=== PATIENT | male | born 1980 | race Caucasian/White ===

== ENCOUNTER 2016-10-15 01:34 | Emergency (ER) | payer MEDICARE, OTHER, MEDICAID ==
[~2016-10-15] VITALS: Ht 167.6 cm; Wt 104.8 kg
[~2016-10-15 01:34] MED LIST: ACET325T9 PO; ALLO300T PO; ARIP20TA8 PO; ASPI-482 PO; BECL8.7A6 IH; BUTA1CAP31 PO; CLON0.1T PO; DICL100G7 TP; DIPH25CA58 PO; DIVA500T17 PO; FLUO10CA7 PO; HYDR25TA PO; LEVO125T5 PO; LIDO30CR TP; LISI10TA2 PO; LISI40TA PO; MAGN400T3 PO; MECL25TA3 PO; MELO-150 PO; METF10002 PO; METO50TA2 PO; MOME17SP NS; NAPR500T3 PO; PHEN100C PO; PRAZ1CAP2 PO; PRAZ2CAP2 PO; PROC10TA PO; QUET50TA5 PO; SERT100T PO; SIMV20TA3 PO; SUMA50TA3 PO; TIOT18CA IH; TIZA4TAB8 PO; TOPI200T25 PO
[2016-10-15 02:19] LABS: BARBITURATES POS (NEG); BENZODIAZEPINES POS (NEG); CANNABINOIDS NEG (NEG); COCAINE NEG (NEG); METHADONE NEG (NEG); OPIATES NEG (NEG); PHENCYCLIDINE NEG (NEG)
[2016-10-15 02:21] LABS: BILIRUBIN,URINE NEG (NEG); CLARITY,URINE CLEAR; COLOR,URINE YELLOW; GLUCOSE,URINE NEG (NEG)
[2016-10-15 02:22] LABS: BACTERIA,URINE FEW /HPF (0-FEW); NITRITE,URINE NEG (NEG); RBC,URINE OCC /HPF (0-2); SQUAMOUS EPITHELIAL CELL,UR OCC /LPF; UROBILINOGEN,URINE 1 mg/dL (0.2 mg/dL); WBC,URINE OCC /HPF (0-4)
[2016-10-15 02:25] LABS: AMPHETAMINE/METHAMPHETAMINE NEG (NEG)
--- NOTE | 2016-10-15 02:43 | PHYS DOC ---
General Chief Complaint: SUICDAL IDEATION Stated Complaint: SI AND DEPRESSION Time Seen by MD: 01:39 Source: patient, EMS Problems: History of Present Illness Initial Comments Patient by EMS for suicidal ideations. Patient says starting today, he is felt suicidal. He has no plan for self-harm. He says he tried to harm himself before and has been in an inpatient psychiatric facilities. He is currently seeing a counselor at the [facility]. He notes no particular trigger for suicidal ideations today. He has no homicidal ideations. Denies any visual or artery hallucinations. He has no acute medical issues today. There is no fever chills URI symptoms or cough. There's no chest pain or shortness of breath. No nausea vomiting or abdominal pain. There is no change in bowel or bladder habits and denies any focal extremity or neurologic complaints . Patient is noted to be generally tremulous, but he says he has been this way ever since he started having seizures in 1999 this is not acutely changed or different for him in any way. Other than presenting for care tonight by EMS to be nothing done for this prior to arrival in the ER no factors that increase or decrease his symptoms. Patient's past medical history according him is remarkable for seizure disorder since about 1999. The cause of this is unknown. He also has TBI in 2008. He says he has hypertension and diabetes as well. Checked her sugar earlier today and it was right around 100. He claims compliance with the seizure medicine which includes valproic acid. He is a nonsmoker and nonuser of ethanol. Nurse indicates the patient told her he was just discharged from [facility] recently. Allergies: Coded Allergies: Penicillins (Verified Allergy, Intermediate, 10/02/16) hydrocodone (Verified Allergy, Unknown, 10/02/16) oxycodone (Verified Allergy, Unknown, 10/02/16) Uncoded Allergies: bee venom (Allergy, Unknown, 10/02/16) Past Medical History Medical History: diabetes, seizure, other Surgical History: noncontributory Psychosocial History: post traumatic stress Family History Significant Family History: no pertinent family hx Social History Smoker: non-smoker Alcohol: none Drugs: none Review of Systems All Other Systems: Reviewed and Negative Physical Exam General Appearance: WD/WN, no apparent distress Eyes: bilateral eye EOMI, bilateral eye PERRL, bilateral eye normal inspection Ear, Nose, Throat: normal ENT inspection, normal pharynx Neck: full range of motion, supple, normal inspection Respiratory: lungs clear, normal breath sounds, no respiratory distress Cardiovascular: regular rate, rhythm, no edema Gastrointestinal: non tender, soft, no organomegaly Back: no CVA tenderness, no vertebral tenderness Extremities: non-tender, normal inspection Neurologic/Psychiatric: warp knitter II-XII nml as tested, no motor/sensory deficits, alert, normal mood/affect, oriented x 3 Skin: normal color Lymphatic: no adenopathy Comments Generally this is a well-developed well-nourished white male in no acute distress. Vitals are as noted. Pertinent findings on physical exam shows ears and throat clear. Pupils are equal and reactive to light and accommodation. Intraocular movements are intact. Neck is supple without adenopathy or JVD. No meningeal signs. Chest is clear and cardiovascular exams unremarkable. The abdomen is soft and nontender without masses or organomegaly or perineal findings. Back shows no CVA tenderness. Extremity show no rash, cyanosis, or edema. Neurologic exam finds patient awake alert oriented 4. Cranial nerves II through XII grossly intact. Strength 5 over 5 equal sinus tested. There are no gross sensory deficits. He says he has self-harm thoughts but is not actively homicidal. He is not actively hallucinating. Remainder of physical exam is clinically unremarkable. Orders, Labs, Meds Old charts note multiple recent visits to the ER as well as hospital admissions. He was seen on the of this month for seizures. There was noted the patient was not incontinent at that time and apparently witnesses said his eyes were twitching but is not unconscious. His noted has a history of pseudoseizure and had a video EEG which revealed no seizure activity in the past 3 also complaining of nonspecific chest pain. He was admitted and seen by neurology, who recommended prolonged video monitoring EEG like was already done in [place]. He was discharged back to his [facility] with diagnosis of pseudoseizure , chronic headache, hypertension, diabetes, hypothyroidism, gout, PTSD, atraumatic brain injury. The patient was sent then seen in the ER on the of the month for breakthrough seizure, and then readmitted to the hospital on the again stating that he had seizures and one was unable to fill his Depakote. He had chronic headache as well. He apparently lives in the [facility] assisted living residence and has all his medications available to him. He was subsequently discharged to follow-up. 0240 Patient resting comfortably in the ED. We have taken advantage of the TelePsych service and the patient has been reviewed by Dr. Guardado. He feels the patient has some poor insight and poor judgment, and possibly some cognitive defects which prevent him from being medically compliant as well as properly aron for safety. He feels the patient would probably be best served by inpatient psychiatric hospitalization. Labs are still pending, but assuming these are unremarkable as is suspect they will be, we will pursue make appropriate calls to find him placement. ORALIA MORROW MD Oct 15, 2016 02:00
[2016-10-15 02:44] LABS: ALBUMIN 3.7 g/dL (3.4-5.0); ALBUMIN/GLOBULIN RATIO 1.3 (1.0-1.7); ALK PHOS 73 U/L (46-116); ALT (SGPT) 66 U/L (16-63); ANION GAP 10 (6-14); AST (SGOT) 26 U/L (15-37); BLOOD UREA NITROGEN 18 mg/dL (8-26); BUN/CREATININE RATIO 18 (6-20); CALCIUM 8.5 mg/dL (8.5-10.1); CARBON DIOXIDE 24 mmol/L (21-32); CHLORIDE 104 mmol/L (98-107); GFR 85.5; GLUCOSE 99 mg/dL (70-99); POTASSIUM 3.5 mmol/L (3.5-5.1); SODIUM 138 mmol/L (136-145); TOTAL BILIRUBIN 0.3 mg/dL (0.2-1.0); TOTAL PROTEIN 6.5 g/dL (6.4-8.2)
[2016-10-15 02:45] LABS: VAL ACID 71 mcg/mL (50-100)
[2016-10-15 02:46] LABS: ACETAMIN < 2.0 mcg/mL (10-30); ETHANOL < 10 mg/dL (0-10)
[2016-10-15 03:04] LABS: BASO % 0 % (0-3); EOS % 1 % (0-3); HEMATOCRIT 44.2 % (39.0-53.0); HEMOGLOBIN 14.3 g/dL (13.0-17.5); LYMPH % 44 % (24-48); MEAN CORPUSCULAR HEMOGLOBIN 29 pg (25-35); MEAN CORPUSCULAR HGB CONC 32 g/dL (31-37); MEAN CORPUSCULAR VOLUME 91 fL (79-100); MONO % 6 % (0-9); NEUT % 49 % (31-73); PLATELET COUNT 187 x10^3/uL (140-400); RED BLOOD COUNT 4.88 x10^6/uL (4.30-5.70); RED CELL DISTRIBUTION WIDTH 14.1 % (11.5-14.5)
[2016-10-15 03:05] LABS: MONO # 0.4 x10^3/uL (0.0-1.1); NEUT # 3.4 x10^3uL (1.8-7.7)
--- NOTE | 2016-10-15 05:20 | ACF ---
Admit Criteria Forms Admit Criteria Forms Admit Criteria Forms PSYCHIATRIC DISORDERS Clinical Indications for Inpatient Care (Place 'X' for any and all applicable criteria): Ongoing inpatient care may be needed for ANY ONE of the following(1)(2)(3)(4)(6) (7)(8): [X]I. Danger to self or others not manageable at lower level of care. [ ]II. Grave disability (eg, inability to perform self care necessary at lower level of care) [ ]III. Agitation or inappropriate behavior interfering with care for primary condition (eg, attempting to discontinue lines or drains prematurely, unable to cooperate with respiratory care) [ ]IV. Severe disability or disorder indicated by ALL of the following: [ ]a) Severe behavioral health disorder-related symptoms or condition indicated by ANY ONE of the following: [ ]i) Severe problem with cognition, memory, judgment, or impulse control [ ]ii) Severe clinical manifestations (eg, hallucinations, delusions, other acute psychotic symptoms, jodi, extreme agitation or anxiety) [ ]b) Patient management at lower level of care is not feasible until acute intervention or modification is initiated. Extended stay beyond goal length of stay for the primary condition may be indicated when ANY ONE of the following is present: (1)(2)(3)(4): [ ]a) Patient is a danger to self or others and not manageable at lower level of care. [ ]b) Behavior crisis management, including physical or chemical restraints, is required and is not available at a lower level of care. [ ]c) Behavioral symptoms (e.g., agitation, somnolence, inappropriate behavior) are present, and are not manageable at a lower level of care. [ ]d) Patient cannot understand follow-up treatment and crisis plan. [ ]e) Provider and supports are not sufficiently available at lower level of care. [ ]f) Patient cannot participate (e.g., verify absence of plan for harm) and is in needed of monitoring. The original [facility] content created by [facility] has been revised. The portions of the content which have been revised are identified through the use of italic text or in bold, and [facility] has neither reviewed nor approved the modified material. All other unmodified content is copyright [facility]. Please see references footnoted in the original [facility] edition 2016 NEDA HELMS Oct 15, 2016 05:20
[2016-10-15 07:05] VITALS: BP 134/75
== END 2016-10-15 08:11 ==
LOC: ER 01:34
DX: R45.851 Suicidal ideations (principal); G40.909 Epilepsy, unspecified, not intractable, without status epilepticus; E11.9 Type 2 diabetes mellitus without complications; I10 Essential (primary) hypertension; Z88.0 Allergy status to penicillin; Z88.6 Allergy status to analgesic agent
CPT/HCPCS: 36415; 80053; 80164; 81001; 82010; 82140; 84443; 85027; 99285; G0480; G0481; G6038; 80196

== ENCOUNTER 2016-11-03 20:17 | Emergency (ER) | payer MEDICARE, OTHER, MEDICAID ==
[~2016-11-03] VITALS: Ht 167.6 cm; Wt 104.8 kg
--- NOTE | 2016-11-03 20:33 | ED.ADGEN ---
Past History Past Medical History: Anxiety, Arthritis, Bronchitis, Depression, DVT, Migraines, Seizure, Other Past Surgical History: Knee Replacement, Tonsillectomy, Other Alcohol Use: None Drug Use: None Adult General Chief Complaint Chief Complaint " .. I got really short of breath walking up to [employer]... and I ve had this head ache since my Traumatic Brain Injury 9 yrs ago.. I usually go to the [facility].. and live [facility].. but I did not want to go there today..." HPI HPI Patient is a 36 year old male who presents with above hx and complaints of dyspnea, chest discomfort and headache. Patient has history of traumatic brain injury 9 years ago. Gives a history of constant headache for the past 9 years. Patient normally follows at the [facility]. [facility] Pt. Has hx of pseudo seizures. Pt. describes chest pains is central and nonradiating. Nothing make the pain better. Pt. states he had it constant the past two days. 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 Not currently on anticoagulant Review of Systems Review of Systems Constitutional: Denies fever or chills [] Eyes: Denies change in visual acuity, redness, or eye pain [] HENT: Denies nasal congestion or sore throat [] Respiratory complaints of shortness of breath [] Cardiovascular: No additional information not addressed in HPI [] GI: Denies abdominal pain, nausea, vomiting, bloody stools or diarrhea [] : Denies dysuria or hematuria []Give history of chronic intermittent urinary retention. Musculoskeletal: Denies back pain or joint pain [] Integument: Denies rash or skin lesions [] Neurologic: Complaints of chronic headache for past 9 years. Denies Focal weakness or sensory changes [] Endocrine: Denies polyuria or polydipsia [] Family History Family History Noncontributory Current Medications Current Medications Current Medications Medications (Trade) Dose Ordered Sig/Chana Start Time Stop Time Status Last Admin Dose Admin Aspirin 325 mg 325 mg 1X ONCE 11/03/16 21:00 11/03/16 21:01 DC 11/03/16 21:25 325 MG Lactated Ringer's (Iv Lactated Ringers) 1,000 ml @ 1,000 mls/hr Q1H 11/03/16 20:45 11/04/16 03:41 DC Tramadol HCl (Ultram) 100 mg 1X ONCE 11/04/16 00:30 11/04/16 01:10 DC 11/04/16 00:41 100 MG Allergies Allergies Allergies Coded Allergies Type Severity Reaction Last Updated Verified Penicillins Allergy Intermediate 10/02/16 Yes hydrocodone Allergy Unknown 10/02/16 Yes oxycodone Allergy Unknown 10/02/16 Yes Uncoded Allergies Type Severity Reaction Last Updated Verified bee venom Allergy Unknown 10/02/16 Physical Exam Physical Exam Constitutional: no acute distress, non-toxic appearance. [] HENT: Normocephalic, atraumatic, bilateral external ears normal, oropharynx moist, no oral exudates, nose normal. Old scars Eyes: PERRLA, EOMI, conjunctiva normal, no discharge. [] Neck: Normal range of motion, no tenderness, supple, no stridor. [] Cardiovascular:Heart rate regular rhythm, no murmur [] Lungs & Thorax: Bilateral breath sounds clear to auscultation [] Abdomen: Bowel sounds normal, soft, no tenderness, no masses, no pulsatile masses. [] Skin: Warm, dry, no erythema, no rash. [] Back: No tenderness, no CVA tenderness. [] Extremities: No tenderness, no cyanosis, no clubbing, ROM intact, no edema. [] Scar knees Neurologic: Alert and oriented X 3, normal motor function, normal sensory function, no focal deficits noted. DTRs +2 patella and brachial. No drift. Xdryxs-pk-kcxf good. Screen Vent Binder equal. Psychologic: Affect normal, judgement and determine at this time., mood normal. [] Current Patient Data Vital Signs Vital Signs Date Time Temp Pulse Resp B/P Pulse Ox O2 Delivery O2 Flow Rate FiO2 11/03/16 20:17 97.8 103 18 97 Room Air Lab Results Laboratory Tests Test 11/03/16 21:26 11/03/16 23:35 Urine Collection Type Unknown Urine Color Straw Urine Clarity Clear Urine pH 6.0 Urine Specific [place] 1.015 Urine Protein Neg (NEG-TRACE) Urine Glucose (UA) Negmg/dL (NEG) Urine Ketones (Stick) Negmg/dL (NEG) Urine Blood Trace (NEG) Urine Nitrite Neg (NEG) Urine Bilirubin Neg (NEG) Urine Urobilinogen Dipstick 0.2mg/dL (0.2 mg/dL) Urine Leukocyte Esterase Neg (NEG) Urine RBC 0/HPF (0-2) Urine WBC Occ/HPF (0-4) Urine Squamous Epithelial Cells Occ/LPF Urine Bacteria 0/HPF (0-FEW) White Blood Count 9.5x10^3/uL (4.0-11.0) Red Blood Count 5.12x10^6/uL (4.30-5.70) Hemoglobin 14.9g/dL (13.0-17.5) Hematocrit 44.9% (39.0-53.0) Mean Corpuscular Volume 88fL (79-100) Mean Corpuscular Hemoglobin 29pg (25-35) Mean Corpuscular Hemoglobin Concent 33g/dL (31-37) Red Cell Distribution Width 13.8% (11.5-14.5) Platelet Count 233x10^3/uL (140-400) Neutrophils (%) (Auto) 62% (31-73) Lymphocytes (%) (Auto) 32% (24-48) Monocytes (%) (Auto) 5% (0-9) Eosinophils (%) (Auto) 1% (0-3) Basophils (%) (Auto) 1% (0-3) Neutrophils # (Auto) 5.9x10^3uL (1.8-7.7) Lymphocytes # (Auto) 3.1x10^3/uL (1.0-4.8) Monocytes # (Auto) 0.5x10^3/uL (0.0-1.1) Eosinophils # (Auto) 0.1x10^3/uL (0.0-0.7) Basophils # (Auto) 0.0x10^3/uL (0.0-0.2) Erythrocyte Sedimentation Rate 4 (0-15) Prothrombin Time 11.0SEC (9.4-11.4) Prothrombin Time INR 1.1 (0.9-1.1) PTT 27SEC (23-33) D-Dimer (Mary) < 0.19mg/L (0.00-0.50) Sodium Level 142mmol/L (136-145) Potassium Level 3.9mmol/L (3.5-5.1) Chloride Level 107mmol/L (98-107) Carbon Dioxide Level 24mmol/L (21-32) Anion Gap 11 (6-14) Blood Urea Nitrogen 19mg/dL (8-26) Creatinine 1.0mg/dL (0.7-1.3) Estimated GFR (Cockcroft-Gault) 85.5 Glucose Level 111mg/dL (70-99) H Calcium Level 8.9mg/dL (8.5-10.1) Magnesium Level 1.9mg/dL (1.8-2.4) Total Bilirubin 0.3mg/dL (0.2-1.0) Direct Bilirubin 0.1mg/dL (0.0-0.2) Aspartate Amino Transferase (AST) 30U/L (15-37) Alanine Aminotransferase (ALT) 102U/L (16-63) H Alkaline Phosphatase 89U/L (46-116) Creatine Kinase 75U/L (39-308) Creatine Kinase MB (Mass) 1.1ng/mL (0.0-3.6) Creatine Kinase MB Relative Index 1.5% (0-4) Troponin I Quantitative < 0.017ng/mL (0-0.055) C-Reactive Protein 5.3mg/L (0-3.3) H LK-Fmd-W-Type Natriuretic Peptide 17pg/mL (0-124) Total Protein 7.2g/dL (6.4-8.2) Albumin 4.0g/dL (3.4-5.0) Lipase 203U/L (73-393) EKG EKG My interpretation EKG shows a sinus tachycardia at 106. Some bimodal P-wave's on the left. Nonspecific anterior septal changes. No findings acute STEMI with contralateral changes Radiology/Procedures Radiology/Procedures My interpretation of chest x-ray shows no acute cardiopulmonary findings. My interpretation of CT of head shows no shift, mass, edema, bleed, or fracture. [] Course & Med Decision Making Course & Med Decision Making Pertinent Labs and Imaging studies reviewed. (See chart for details). Patient to follow-up primary care. Patient return if any concerns. Patient take a daily aspirin. Recent take Tylenol and ibuprofen as needed for discomfort. Patient request cath. by nurse because of urinary retention. Pt. however demanded the cath. be removed at time of discharge. [] Final Impression Final Impression 1. Dyspnea[] 2. History of chronic migraine 3. History of traumatic brain injury 4. History of intermediate chronic urinary retention 5. Possible Drug seeking Behavior. 6. Hx. Behavioral Disorder 7. Hx. Depression 8. Hx. of Pseudoseizures Problems: Dragon Disclaimer Zachary Disclaimer This electronic medical record was generated, in whole or in part, using a voice recognition dictation system. STORM DELUNA MD Nov 03, 2016 20:33
[2016-11-03] MEDS ORDERED: IV RINGERS SOLUTION,LACTATED 1,000 ML IV SCH (20:45)
[2016-11-03] MEDS ORDERED: ASPIRIN 325 MG TABLET PO ONE (21:00)
--- NOTE | 2016-11-03 21:14 | RAD ---
PROCEDURE CT head without intravenous contrast. HISTORY Headache. TECHNIQUE Axial images are obtained of the head from the skull base through the vertex without IV contrast Exposure: One or more of the following individualized dose reduction techniques were utilized for this examination: 1. Automated exposure control. 2. Adjustment of the mA and/or kV according to patient size. 3. Use of iterative reconstruction technique. COMPARISON CT head October 02, 2016. FINDINGS The ventricles are appropriate in size, shape, and location for the patient's age.No obvious intracranial mass, mass-effect, midline shift, hemorrhage or obvious acute infarction is identified.Basilar cisterns are patent. Bone windows demonstrate no acute calvarial abnormality.The visualized paranasal sinuses appear clear. IMPRESSION No acute intracranial process. Electronically signed by: Karthik Howard MD (Nov 03, 2016 21:12:43)
[2016-11-03 22:07] LABS: BACTERIA,URINE 0 /HPF (0-FEW); BILIRUBIN,URINE NEG (NEG); CLARITY,URINE CLEAR; COLOR,URINE STRAW; GLUCOSE,URINE NEG (NEG); NITRITE,URINE NEG (NEG); RBC,URINE 0 /HPF (0-2); SQUAMOUS EPITHELIAL CELL,UR OCC /LPF; UROBILINOGEN,URINE 0.2 mg/dL (0.2 mg/dL); WBC,URINE OCC /HPF (0-4)
--- NOTE | 2016-11-03 23:19 | EKG ---
[address] [address] Test Date: 2016-11-03 Test Time: 20:35:14 Pat Name: AGNELA JOHANSEN Department: Room: Gender: M Fly Winder: ALEX : 1980 Requested By: STORM DELUNA Order Number: [id number] Reading MD: Measurements Intervals [place] Rate: 106 P: -133 MI: 134 QRS: 13 QRSD: 94 T: 11 QT: 324 QTc: 432 Interpretive Statements SINUS TACHYCARDIA LEFT ATRIAL ABNORMALITY QRS(T) CONTOUR ABNORMALITY CONSIDER ANTEROSEPTAL MYOCARDIAL DAMAGE ABNORMAL ECG RI6.01 Unconfirmed report No previous ECG available for comparison
[2016-11-03 23:52] LABS: BASO % 1 % (0-3); EOS # 0.1 x10^3/uL (0.0-0.7); EOS % 1 % (0-3); HEMATOCRIT 44.9 % (39.0-53.0); HEMOGLOBIN 14.9 g/dL (13.0-17.5); LYMPH # 3.1 x10^3/uL (1.0-4.8); LYMPH % 32 % (24-48); MEAN CORPUSCULAR HEMOGLOBIN 29 pg (25-35); MEAN CORPUSCULAR HGB CONC 33 g/dL (31-37); MEAN CORPUSCULAR VOLUME 88 fL (79-100); MONO # 0.5 x10^3/uL (0.0-1.1); MONO % 5 % (0-9); NEUT # 5.9 x10^3uL (1.8-7.7); NEUT % 62 % (31-73); PLATELET COUNT 233 x10^3/uL (140-400); RED BLOOD COUNT 5.12 x10^6/uL (4.30-5.70); RED CELL DISTRIBUTION WIDTH 13.8 % (11.5-14.5); WHITE BLOOD COUNT 9.5 x10^3/uL (4.0-11.0)
[2016-11-04 00:14] LABS: C REACTIVE PROTEIN 5.3 mg/L (0-3.3); CALCIUM 8.9 mg/dL (8.5-10.1); DIRECT BILIRUBIN 0.1 mg/dL (0.0-0.2); GFR 85.5; MAGNESIUM 1.9 mg/dL (1.8-2.4); POTASSIUM 3.9 mmol/L (3.5-5.1); TOTAL BILIRUBIN 0.3 mg/dL (0.2-1.0); TOTAL PROTEIN 7.2 g/dL (6.4-8.2)
[2016-11-04 00:30] VITALS: BP 141/82
[2016-11-04] MEDS ORDERED: TRAMADOL 50 MG TABLET. PO ONE (00:30)
[2016-11-04 01:08] LABS: SEDIMENTATION RATE 4 (0-15)
--- NOTE | 2016-11-04 08:18 | RAD ---
Indication: Chest pain and short of breath. Technique: Two-view chest radiograph was obtained and compared to a study from October 02, 2016. Findings: There is improved aeration of the left lung base. Calcified granuloma is noted on the left. Right costophrenic sulcus is clipped on the frontal projection. No new airspace disease is apparent. The heart is not enlarged and there is no heart failure. There is no pleural effusion. Bony structures are intact. Leads overlie the patient. Impression: No acute thoracic findings.
== END 2016-11-04 00:46 | disposition home or self-care (01) ==
LOC: ER 20:17
DX: R06.00 Dyspnea, unspecified (principal); G43.909 Migraine, unspecified, not intractable, without status migrainosus; M19.90 Unspecified osteoarthritis, unspecified site; F91.9 Conduct disorder, unspecified; Z86.718 Personal history of other venous thrombosis and embolism; Z86.711 Personal history of pulmonary embolism; Z87.820 Personal history of traumatic brain injury; Z88.0 Allergy status to penicillin; Z88.6 Allergy status to analgesic agent; Z91.030 Bee allergy status
CPT/HCPCS: 36415; 51702; 70450; 71020; 80048; 80076; 81001; 82553; 83690; 83735; 83880; 84443; 84484; 85027; 85379; 85610; 85651; 85730; 86140; 93005; 99285-25

== ENCOUNTER 2016-11-14 04:17 | Emergency (ER) | payer MEDICARE, OTHER, MEDICAID ==
[~2016-11-14] VITALS: Ht 167.6 cm; Wt 98.0 kg
--- NOTE | 2016-11-14 04:29 | PHYS DOC ---
General Chief Complaint: cp Stated Complaint: CHEST PAIN Time Seen by MD: 04:22 Source: patient Exam Limitations: clinical condition Problems: History of Present Illness Initial Comments Pt is 36/M to [facility] with complaint of MINOR, chest pain. Pt states immediately prior to ED arrival he "awoke" on the floor in the bathroom. Pt feels he must have had a seizure, states he awoke with global moderate MINOR and chest pain. No focal neurodefs, MINOR is consistent with chronic symptoms. Chest pain described as pressure behind sternum moderate, worse with deep breaths relieved by nothing. No arm/neck sx, no n/v, no diaphoresis, + feeling cannot get a deep breath. EMS gave ASA 324, pt reports he had a negative chemical stress test about a year ago. Pt recently relocated to this area. No pain complaints other than MINOR/CP, pt denies injury from presumed fall. Timing/Duration: 1 hour Severity: moderate Associated Symptoms: chest pain, headaches, malaise, seizure, syncope, weakness Allergies: Coded Allergies: Penicillins (Verified Allergy, Intermediate, 11/14/16) hydrocodone (Verified Allergy, Unknown, 11/14/16) oxycodone (Verified Allergy, Unknown, 11/14/16) Uncoded Allergies: bee venom (Allergy, Unknown, 10/02/16) Past Medical History Medical History: diabetes, seizure, other (Pulmonary Embolism, OA, bronchitis, TBI, PTSD, anxiety, bipolar, drug seeking behavior, seizure/pseudoseizure, chronic headaches, HTN, DM2, hypothyroid, gout) Surgical History: noncontributory (TKR), tonsillectomy Family History Significant Family History: no pertinent family hx Social History Smoker: non-smoker Alcohol: none Drugs: none Review of Systems Constitutional: denies chills, denies diaphoresis, denies fever, malaise Respiratory: cough shortness of breath wheezing Cardiovascular: chest paindenies edema, denies palpitations, syncope Gastrointestinal: denies abdominal pain, denies diarrhea, denies nausea, denies vomiting Genitourinary: denies dysuria, denies frequency, denies hematuria Musculoskeletal: denies back pain, denies joint swelling, denies neck pain Psychiatric/Neurological: headachedenies numbness, denies paresthesia, seizuredenies weakness Hematologic/Lymphatic: denies blood clots, denies easy bleeding, denies easy bruising Physical Exam General Appearance: WD/WN, no apparent distress Eyes: bilateral eye EOMI, bilateral eye PERRL, bilateral eye normal inspection Ear, Nose, Throat: hearing grossly normal, normal ENT inspection, normal pharynx Neck: non-tender, supple Respiratory: chest non-tender, no respiratory distress, decreased breath sounds , wheezing Cardiovascular: normal peripheral pulses, regular rate, rhythm Gastrointestinal: non tender, soft Back: no CVA tenderness, no vertebral tenderness Extremities: non-tender, normal inspection Neurologic/Psychiatric: commercial sales director II-XII nml as tested, no motor/sensory deficits, alert, oriented x 3, other (flat affect) Skin: normal color, warm/dry Orders, Labs, Meds EKG: NSR 83 bpm, no acute ischemic changes no STEMI Chest AP: no acute cardiopulmonary process Pt signed out to Dr Christian at 0600 shift change. See his note for results/ disposition. CRISTIAN AGARWAL DO Nov 14, 2016 04:28
[2016-11-14] MEDS ORDERED: IPRATRPIUM/ALBUTEROL 0.5/2.5MG 3 ML NEBU. NEB ONE (04:45)
[2016-11-14 05:24] LABS: BASO % 0 % (0-3); EOS # 0.1 x10^3/uL (0.0-0.7); EOS % 1 % (0-3); HEMATOCRIT 44.9 % (39.0-53.0); HEMOGLOBIN 14.8 g/dL (13.0-17.5); LYMPH # 3.4 x10^3/uL (1.0-4.8); LYMPH % 42 % (24-48); MEAN CORPUSCULAR HEMOGLOBIN 29 pg (25-35); MEAN CORPUSCULAR HGB CONC 33 g/dL (31-37); MEAN CORPUSCULAR VOLUME 88 fL (79-100); MONO # 0.5 x10^3/uL (0.0-1.1); MONO % 7 % (0-9); NEUT # 4.2 x10^3uL (1.8-7.7); NEUT % 51 % (31-73); PLATELET COUNT 253 x10^3/uL (140-400); RED BLOOD COUNT 5.11 x10^6/uL (4.30-5.70); RED CELL DISTRIBUTION WIDTH 14.5 % (11.5-14.5); WHITE BLOOD COUNT 8.1 x10^3/uL (4.0-11.0)
[2016-11-14 05:31] LABS: BARBITURATES NEG (NEG); BENZODIAZEPINES NEG (NEG); CANNABINOIDS NEG (NEG); COCAINE NEG (NEG); METHADONE NEG (NEG); OPIATES NEG (NEG); PHENCYCLIDINE NEG (NEG)
[2016-11-14 05:33] LABS: BACTERIA,URINE FEW /HPF (0-FEW); BILIRUBIN,URINE NEG (NEG); CLARITY,URINE CLEAR; COLOR,URINE STRAW; GLUCOSE,URINE NEG (NEG); NITRITE,URINE NEG (NEG); RBC,URINE 0 /HPF (0-2); SQUAMOUS EPITHELIAL CELL,UR OCC /LPF; UROBILINOGEN,URINE 0.2 mg/dL (0.2 mg/dL); WBC,URINE 0 /HPF (0-4)
[2016-11-14 05:38] LABS: AMPHETAMINE/METHAMPHETAMINE NEG (NEG); VAL ACID < 3 mcg/mL (50-100)
[2016-11-14 05:45] LABS: ALBUMIN 4.1 g/dL (3.4-5.0); ALBUMIN/GLOBULIN RATIO 1.3 (1.0-1.7); CALCIUM 8.8 mg/dL (8.5-10.1); GFR 85.5; MAGNESIUM 1.9 mg/dL (1.8-2.4); POTASSIUM 3.7 mmol/L (3.5-5.1); TOTAL BILIRUBIN 0.3 mg/dL (0.2-1.0); TOTAL PROTEIN 7.2 g/dL (6.4-8.2)
[2016-11-14] MEDS ORDERED: KETOROLAC 15 MG/ML VIAL. IV ONE (06:30)
[2016-11-14] MEDS ORDERED: DIPHENHYDRAMINE 50 MG/ML VIAL IVP ONE (06:30)
[2016-11-14] MEDS ORDERED: DIPHENHYDRAMINE 50 MG/ML VIAL ONE (06:36)
[2016-11-14] MEDS ORDERED: KETOROLAC 15 MG/ML VIAL. ONE (06:36)
[2016-11-14 06:50] VITALS: BP 109/68
--- NOTE | 2016-11-14 07:58 | RAD ---
Indication chest pain. A single view of the chest was obtained. Comparison is made to an examination 11 days earlier. The heart and pulmonary vessels appear normal. The lungs are clear. There is no pleural fluid or pneumothorax. Bony structures appear grossly intact. A significant change when compared to the previous exam is not seen. IMPRESSION: No acute or focal process. No significant change
--- NOTE | 2016-11-14 10:28 | EKG ---
[address] [address] Test Date: 2016-11-14 Test Time: 04:20:52 Pat Name: ANGELA JOHANSEN Department: Room: Gender: M Staff Respiratory Therapist: JULIETTE : 1980 Requested By: CRISTIAN AGARWAL Order Number: [id number] Reading MD: Measurements Intervals [place] Rate: 83 P: 15 NE: 158 QRS: 2 QRSD: 106 T: 18 QT: 354 QTc: 416 Interpretive Statements SINUS RHYTHM R-S TRANSITION ZONE IN V LEADS DISPLACED TO THE LEFT OTHERWISE NORMAL ECG RI6.01 Unconfirmed report No previous ECG available for comparison
== END 2016-11-14 06:54 | disposition home or self-care (01) ==
LOC: ER 04:17
DX: R51 Headache (principal); G89.29 Other chronic pain; R07.89 Other chest pain; R05 Cough; R06.02 Shortness of breath; F41.9 Anxiety disorder, unspecified; E11.9 Type 2 diabetes mellitus without complications; E03.9 Hypothyroidism, unspecified; F43.10 Post-traumatic stress disorder, unspecified; M10.9 Gout, unspecified; I10 Essential (primary) hypertension; M19.90 Unspecified osteoarthritis, unspecified site; Z87.820 Personal history of traumatic brain injury; Z86.711 Personal history of pulmonary embolism; Z88.0 Allergy status to penicillin; Z88.6 Allergy status to analgesic agent; Z91.030 Bee allergy status
CPT/HCPCS: 36415; 71010; 80053; 80164; 80305; 81001; 82550; 83605; 83690; 83735; 83880; 84484; 85027; 85379; 85610; 85730; 93005; 94640; 96374; 96375; 99285; J1200; J1885; J7620; G0481

== ENCOUNTER 2016-11-16 22:56 | Emergency (ER) | payer MEDICARE, OTHER, MEDICAID ==
[2016-11-16 22:56] VITALS: BP 145/79
--- NOTE | 2016-11-16 23:14 | PHYS DOC ---
General Chief Complaint: MECHANICAL FALL Time Seen by MD: 23:01 Source: patient, EMS Problems: History of Present Illness Initial Comments Patient here after fall. Patient says he doesn't know what happened. He thinks he may been trying to do some close, but he remembers being the back of the ambulance with paramedics around. He says he doesn't know how he fell or when he fell. He doesn't know if he has had. He doesn't know if he had a seizure doesn't think he was incontinent. According to EMS, the patient. Has a history of seizures and fell down some steps. It is unknown if he actually had a seizure today or if he did hit his head. EMS notes that he was not incontinent. He was able to get up and walk towards her stretcher on their arrival. At this time, the patient complains of pain over the posterior midline scalp as well as the neck. He has headache. He has no vision or speech changes. There's been no blood or fluid coming from the ears or nose. He's had no fever chills URI symptoms or cough today. There is no chest pain or shortness of breath. No nausea vomiting or abdominal pain. There's been no incontinence and no change amount of bladder habits today. He denies any acute focal extremity or neurologic complaints. Patient states he otherwise is felt well today and does recall anything specific about tonight's incident or fall. Patient's and nothing done for this prior to arrival other than transfer by EMS and no fractures noted increase or decrease in symptoms she might have. Patient's past medical history is remarkable for pseudoseizures, traumatic brain injury, PTSD, diabetes by his report. He says he does not check his sugar regularly at home and is not supposed to. He is a nonsmoker and nonuser of ethanol. He lives at [facility]. Allergies: Coded Allergies: Penicillins (Verified Allergy, Intermediate, 11/14/16) hydrocodone (Verified Allergy, Unknown, 11/14/16) oxycodone (Verified Allergy, Unknown, 11/14/16) Uncoded Allergies: bee venom (Allergy, Unknown, 10/02/16) Past Medical History Medical History: diabetes, seizure, other Surgical History: noncontributory, tonsillectomy Family History Significant Family History: no pertinent family hx Social History Smoker: non-smoker Alcohol: none Review of Systems All Other Systems: Reviewed and Negative Physical Exam General Appearance: WD/WN, no apparent distress Eyes: bilateral eye EOMI, bilateral eye PERRL, bilateral eye normal inspection Ear, Nose, Throat: normal ENT inspection, normal pharynx, other Neck: supple, normal inspection, tender midline Respiratory: lungs clear, normal breath sounds, no respiratory distress Cardiovascular: regular rate, rhythm, no edema Gastrointestinal: non tender, soft, no organomegaly Back: no CVA tenderness, no vertebral tenderness Extremities: non-tender, normal inspection, no pedal edema Neurologic/Psychiatric: 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 Vitals are as noted. Pertinent signs on physical exam shows ears and throat to be grossly clear. The head is atraumatic and normocephalic. He is mildly tender over the posterior midline parietal scalp. There is no signs of trauma. Pupils are equal reactive light and accommodation. Extra ocular movements are intact. Neck is examined and cervical collar. He has diffuse midline tenderness. There is no signs of trauma and no step-offs. Collar is maintained. Chest is clear and cardiovascular exam shows him to be mildly tachycardic with a 3/6 midsystolic murmur heard best at the upper left sternal border. He states he has no history of murmur. The abdomen is soft and nontender. Back shows no CVA tenderness. There is no bony thoracic or lumbar tenderness. Externally show no rashes, cyanosis or edema. Neurologic exam shows an awake alert oriented 4. Cranial nerves II through XII grossly intact. Strength 5 over 5 = system. There are no gross sensory deficits. He is initially not ambulated in the ER. Remainder of physical exam is clinically unremarkable. Orders, Labs, Meds Old charts note multiple recent ER visits. This is fifth visit this year alone. He's been seen for breakthrough seizure, chronic chest pain, chronic headache, and suicidal ideations. He was admitted the hospital the of last month for breakthrough seizure. In looking at the discharge summary, as noted the patient has had video EEG which does confirm the diagnosis of pseudoseizure. He also has hypertension, diabetes, thyroidism, gout, PTSD, atretic brain injury. He was not taking his Depakote at that time. He was discharged back to the assisted living with social service consult. He has a similar condition earlier in September of this year as well. EKG shows sinus 130. Normal axis. No acute ST or T-wave changes. Labs today are clinically unremarkable. Tox screen is negative. Chest x-ray shows no acute changes per the emergency physician. CT scan of the head and neck show no acute changes no fracture or dislocation per radiology. 0115 Patient resting comfortably in the ER. He has no acute complaints. I removed the cervical collar. His heart rate was initially 30, and this decreased to about 1:15. I'm not sure why his heart rate is elevated. There is no obvious intoxicated or other cause. We'll continue to observe the patient to make sure his heart rate continues to decrease appropriately prior to discharge. He is resting comfortably at this time. 0245 Patient continues to rest comfortable in the ER. Heart rate is decreased nicely to about 105-110. I suspect this may be his chronic state. Reviewed his medications, is on supplemental thyroid medication, and this may be some effect of that. I did order a TSH and T4 which will not be available tonight, but will be available for review by his own physician as needed. I discussed with the patient the uncertain cause of his episode tonight, certainly there appears to be no acute injury. He may have had a seizure, but as noted, he's been diagnosed with a video EEG with actual pseudoseizures rather than true seizure activity. I think rather than confused he is already complex medical picture with additional medications, was asked to use Advil or Tylenol as needed home for any pain. We'll give him appropriate head injury instructions and asked to continue his home medicine. He actually is going back to a supervised facility, [facility]. We'll ask her to follow up with primary care or return to the ER sooner as needed if worsening anyway. He looks well, in no acute discomfort distress, neurologically intact, and okay for discharge home at this time. ORALIA MORROW MD Nov 16, 2016 23:14
[2016-11-16] MEDS ORDERED: IV NORMAL SALINE 1,000ML 1,000 ML IV ONE (23:45)
[2016-11-16 23:46] LABS: BASO % 0 % (0-3); EOS % 1 % (0-3); HEMATOCRIT 41.8 % (39.0-53.0); HEMOGLOBIN 13.8 g/dL (13.0-17.5); LYMPH # 2.8 x10^3/uL (1.0-4.8); LYMPH % 43 % (24-48); MEAN CORPUSCULAR HEMOGLOBIN 29 pg (25-35); MEAN CORPUSCULAR HGB CONC 33 g/dL (31-37); MEAN CORPUSCULAR VOLUME 88 fL (79-100); MONO # 0.5 x10^3/uL (0.0-1.1); MONO % 7 % (0-9); NEUT # 3.2 x10^3uL (1.8-7.7); NEUT % 49 % (31-73); PLATELET COUNT 189 x10^3/uL (140-400); RED BLOOD COUNT 4.78 x10^6/uL (4.30-5.70); RED CELL DISTRIBUTION WIDTH 14.3 % (11.5-14.5); WHITE BLOOD COUNT 6.5 x10^3/uL (4.0-11.0)
[2016-11-16 23:57] LABS: ALBUMIN 3.8 g/dL (3.4-5.0); ALBUMIN/GLOBULIN RATIO 1.3 (1.0-1.7); CALCIUM 8.9 mg/dL (8.5-10.1); GFR 85.5; POTASSIUM 3.9 mmol/L (3.5-5.1); TOTAL BILIRUBIN 0.2 mg/dL (0.2-1.0); TOTAL PROTEIN 6.8 g/dL (6.4-8.2)
--- NOTE | 2016-11-17 00:05 | RAD ---
PROCEDURE CT head and CT cervical spine without intravenous contrast. HISTORY Injury from fall on stairs, loss of consciousness. Headache. Neck pain. TECHNIQUE Axial images are obtained of the head from the skull base through the vertex without IV contrast Noncontrast CT of the cervical spine was performed. Axial, sagittal, and coronal reconstructions were obtained. Exposure: One or more of the following individualized dose reduction techniques were utilized for this examination: 1. Automated exposure control. 2. Adjustment of the mA and/or kV according to patient size. 3. Use of iterative reconstruction technique. COMPARISON CT head November 03, 2016. FINDINGS CT head: The ventricles are appropriate in size, shape, and location for the patient's age.No obvious intracranial mass, mass-effect, midline shift, hemorrhage or obvious acute infarction is identified.Basilar cisterns are patent. Bone windows demonstrate no acute calvarial abnormality.The visualized paranasal sinuses appear clear. CT C-spine: No acute fracture or acute malalignment is identified. No prevertebral soft tissue swelling is seen. Mild multilevel degeneration is present. IMPRESSION 1. No acute intracranial process. 2. No acute osseous traumatic injury identified in the cervical spine. Electronically signed by: Karthik Howard MD (Nov 17, 2016 00:00:31)
[2016-11-17 00:53] LABS: BARBITURATES NEG (NEG); BENZODIAZEPINES NEG (NEG); CANNABINOIDS NEG (NEG); COCAINE NEG (NEG); METHADONE NEG (NEG); OPIATES NEG (NEG); PHENCYCLIDINE NEG (NEG)
[2016-11-17 00:56] LABS: BACTERIA,URINE 0 /HPF (0-FEW); BILIRUBIN,URINE NEG (NEG); CLARITY,URINE CLEAR; COLOR,URINE YELLOW; GLUCOSE,URINE NEG (NEG); NITRITE,URINE NEG (NEG); RBC,URINE 0 /HPF (0-2); SQUAMOUS EPITHELIAL CELL,UR OCC /LPF; UROBILINOGEN,URINE 0.2 mg/dL (0.2 mg/dL); WBC,URINE RARE /HPF (0-4)
[2016-11-17 00:58] LABS: AMPHETAMINE/METHAMPHETAMINE NEG (NEG)
--- NOTE | 2016-11-17 02:10 | ACF ---
Admission Criteria Forms SEIZURE Clinical Indications for Admission to Inpatient Care (Place 'X' for any and all applicable criteria): Admission is indicated for seizure and ANY ONE of the following(1)(2)(3)(4)(5): [X]I. Inpatient admission required rather than observation care (Also use Seizure: Observation Care Criteria as appropriate) because of ANY ONE of the following: [ ]a) Altered mental status that is severe or persistent [ ]b) New focal neurologic deficit that is severe or persistent [ ]c) Metabolic disorder (eg, hypoglycemia, hyponatremia) that is severe or persistent [X]d) Recurrent seizure [ ]e) Outpatient antiseizure regimen cannot be established (eg , patient cannot tolerate medication, initiation requires inpatient care) [ ]f) Need for ongoing intravenous infusion of antiseizure medication [ ]g) Cardiac arrhythmias of immediate concern [ ]h) Cerebral bleeding, hydrocephalus, or vasospasm monitoring (14) [ ]i) Increased intracranial pressure or cerebral edema monitoring (15) [ ]j) Other treatment or monitoring requiring inpatient admission [ ]II. Status epilepticus [A] or repetitive seizures not controlled with emergent treatment (6)(8) [ ]III. Brain disorder (eg, tumor, edema, and hydrocephalus) that requiring monitoring or intervention available only at inpatient level of care. [ ]IV. Brain insult (eg, severe trauma, stroke, drug toxicity, or withdrawal) that requires monitoring or intervention available only at inpatient level of care (10)(11) Extended stay beyond goal length of stay may be needed for (22) [ ]a) Complications of status epilepticus [ ]b) Refractory status epilepticus [ ]c) Etiology-specific therapy for conditions such as [employer] infection, head injury,eclampsia, severe metabolic abnormalities, and brain tumor [ ]d) Residual neurologic damage, [ ]e) Initiation of significant change to anticonvulsant treatment [ ]f) Older patients (65 years or older) [ ]g) Patient requiring intubation (eg, to protect airway) The original [place] content created by [employer] has been revised. The portions of the content which have been revised are identified through the use of italic text or in bold, and [facility] [employer] has neither reviewed nor approved the modified material. All other unmodified content is copyright [facility] [employer]. Please see references footnoted in the original [facility] edition 2016 HUSSEIN TOMPKINS Nov 17, 2016 02:10
--- NOTE | 2016-11-17 06:40 | EKG ---
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
--- NOTE | 2016-11-17 07:50 | RAD ---
Portable chest, 11/16/2016: History: Tachycardia, loss of consciousness Comparison is made to a study from 11/14/2016. The heart size and pulmonary vascularity are normal. There is a small left basilar nodule compatible with a granuloma. No acute infiltrates are seen. There is no evidence of pleural fluid. IMPRESSION: No acute cardiopulmonary abnormality is detected.
== END 2016-11-17 03:35 | disposition home or self-care (01) ==
LOC: ER 22:56
DX: R51 Headache (principal); R00.0 Tachycardia, unspecified; E11.9 Type 2 diabetes mellitus without complications; Z88.0 Allergy status to penicillin; Z88.5 Allergy status to narcotic agent; Z91.030 Bee allergy status
CPT/HCPCS: 36415; 70450; 71010; 72125; 80053; 80305; 80320; 81001; 82010; 82550; 83605; 84146; 84436; 84443; 85027; 85379; 93005; 96360; 96361; G0480; G0481; 99285-25; J7030

== ENCOUNTER 2016-11-20 02:45 | Observation (INO) | payer MEDICARE, OTHER, MEDICAID ==
[~2016-11-20] VITALS: Ht 167.6 cm; Wt 100.9 kg
--- NOTE | 2016-11-20 02:57 | PHYS DOC ---
General Stated Complaint: CHEST PAIN Time Seen by MD: 02:47 Source: patient, EMS Problems: History of Present Illness Initial Comments Patient here for chest pain. Patient says it started 2 hours ago watching a movie. He feels like a tightening sharp pain in the left central chest. Patient has been seen here for previous chest pain, but when asked if this is the same he's had before he says that this pain is worse. It associated with some mild shortness of breath, mild nausea, but no diaphoresis. Nonradiating. There is no history of injury or trauma to the chest. He's had no fever or chills. There is no runny nose or sore throat. There is no cough. There's no abdominal pain. There is no change in bowel or bladder habits he denies any focal extremity or neurologic complaints. Patient is done nothing for this prior to arrival other than contact EMS. He does say the pain is worse when he takes a deep breath but notes no other increasing or decreasing factors. Patient's past medical shows marked for PTSD, traumatic brain injury, and pseudoseizures. He also states he' s had pericarditis in the past as well as pulmonary emboli. He is not currently on any blood thinners except aspirin. He states he has diabetes but doesn't check her sugar at home. He says he has high cholesterol and hypertension as well. He is a nonsmoker and nonuser of ethanol. He lives at [facility]. Allergies: Coded Allergies: venom-honey bee (Verified Allergy, Severe, 11/20/16) Penicillins (Verified Allergy, Intermediate, 11/14/16) hydrocodone (Verified Allergy, Intermediate, 11/20/16) oxycodone (Verified Allergy, Intermediate, 11/20/16) Past Medical History Medical History: deep vein thrombosis, diabetes, high cholesterol, hypertension , seizure, other Surgical History: noncontributory, tonsillectomy Psychosocial History: post traumatic stress Family History Significant Family History: no pertinent family hx Social History Smoker: non-smoker Alcohol: none Review of Systems All Other Systems: Reviewed and Negative Physical Exam General Appearance: WD/WN, no apparent distress Ear, Nose, Throat: normal ENT inspection, normal pharynx Neck: full range of motion, supple, normal inspection Respiratory: lungs clear, normal breath sounds, no respiratory distress Cardiovascular: regular rate, rhythm, no edema Gastrointestinal: non tender, soft, no organomegaly Back: no CVA tenderness, no vertebral tenderness Extremities: non-tender, normal inspection, no pedal edema Neurologic/Psychiatric: alert, oriented x 3 Skin: normal color Lymphatic: no adenopathy Comments Generally this is a well-developed well-nourished moderately obese white male in no acute distress. Vitals are as noted. Pertinent findings on physical exam show the neck is supple without adenopathy or JVD. There's no meningeal signs. Chest clear to auscultation bilaterally. Chest wall is fully nontender. There is no tenderness or pain elicited by motion of the upper external Janice's resistance. Cardiac vascular exam shows regular rate and rhythm without murmur. The abdomen is soft and nontender without masses or megaly. There is no perineal findings. Back shows no CVA tenderness. Externally show no rashes, cyanosis, or edema. There's no gross signs of DVT. Neurologic exam shows the patient awake alert oriented 4. He has a very flat affect. There are no gross motor or sensory deficits appreciated. Remainder of physical exam is clinically unremarkable. Orders, Labs, Meds Old charts note multiple recent ER visits for a variety of issues. This is his fourth visit this month alone. He was seen here for chronic headache and chronic chest pain. I saw him 2 nights ago for a fall after possible seizure. He was diagnosed with a contusion ahead at that time. As noted has a history of pseudoseizures, verified by video EEG in the past. I can't find a record of any old stress test in our system. EKG shows sinus at 90. Slight left axis deviation. No acute ST or T-wave changes. Labs today are clinically unremarkable. Cardiac enzymes are not elevated. D- dimer is negative. Chest x-ray shows no acute changes per the emergency physician. 0500 Patient resting comfortably in the ER. He is happy laughing and smiling, playing on his cell phone. He says chest pain as no different, but externally appears to be in no acute discomfort distress. Patient does have medically injury and some psychiatric issues, is difficult to really tell is going on. However, by history gets inappropriate tail, he certainly has risk factors as well. I can't find any evidence of old stress test that would demonstrate no cardiac disease, and I think the safest course of action would probably be admission to the hospital for serial enzymes and EKGs, cardiology evaluation, an echocardiogram to rule out pericarditis given his history of the same. I suspect his workup will be negative, but given his story and risk factors I think this is the safest course of action. Patient himself is agreeable to stay. I discussed the case with Dr. Gerardo of the hospitalist service who graciously agrees to accept the patient to care. It's noted we have not been able to obtain an IV tonight, but I don't anticipate giving him any IV medication on an emergent basis. I will write initial holding orders including serial enzymes and EKGs, echocardiogram, cardiology consult. We'll also give him an aspirin daily. He looks well, resting comfortably, in no acute distress, awaiting transfer to the floor and hospitalist care. ORALIA MORROW MD Nov 20, 2016 02:57
[2016-11-20] MEDS: ASPIRIN 325 MG TABLET PO ONE (03:30)
[2016-11-20] MEDS: KETOROLAC 30 MG/ML VIAL. IV ONE (03:30)
--- NOTE | 2016-11-20 03:46 | EKG ---
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
[2016-11-20 04:09] LABS: BASO % 0 % (0-3); EOS % 1 % (0-3); HEMATOCRIT 40.7 % (39.0-53.0); HEMOGLOBIN 13.5 g/dL (13.0-17.5); LYMPH # 2.4 x10^3/uL (1.0-4.8); LYMPH % 40 % (24-48); MEAN CORPUSCULAR HEMOGLOBIN 29 pg (25-35); MEAN CORPUSCULAR HGB CONC 33 g/dL (31-37); MEAN CORPUSCULAR VOLUME 87 fL (79-100); MONO # 0.4 x10^3/uL (0.0-1.1); MONO % 6 % (0-9); NEUT # 3.2 x10^3uL (1.8-7.7); NEUT % 53 % (31-73); PLATELET COUNT 187 x10^3/uL (140-400); RED BLOOD COUNT 4.71 x10^6/uL (4.30-5.70); RED CELL DISTRIBUTION WIDTH 13.8 % (11.5-14.5)
[2016-11-20] MEDS: KETOROLAC 30 MG/ML VIAL. IM ONE (04:10)
[2016-11-20 04:37] LABS: ALBUMIN 3.7 g/dL (3.4-5.0); ALBUMIN/GLOBULIN RATIO 1.3 (1.0-1.7); CALCIUM 8.7 mg/dL (8.5-10.1); CREATININE 0.9 mg/dL (0.7-1.3); GFR 96.6; POTASSIUM 3.6 mmol/L (3.5-5.1); TOTAL BILIRUBIN 0.3 mg/dL (0.2-1.0); TOTAL PROTEIN 6.6 g/dL (6.4-8.2)
[2016-11-20 05:53] LABS: BACTERIA,URINE 0 /HPF (0-FEW); BILIRUBIN,URINE NEG (NEG); CLARITY,URINE CLEAR; COLOR,URINE YELLOW; GLUCOSE,URINE NEG (NEG); NITRITE,URINE NEG (NEG); RBC,URINE 0 /HPF (0-2); SQUAMOUS EPITHELIAL CELL,UR OCC /LPF; UROBILINOGEN,URINE 0.2 mg/dL (0.2 mg/dL); WBC,URINE RARE /HPF (0-4)
[2016-11-20 06:01] VITALS: BP 154/93
[2016-11-20 06:19] VITALS: BP 131/86
--- NOTE | 2016-11-20 08:10 | RAD ---
Portable chest, 11/20/2016: History: Chest pain Comparison is made to a study from 11/16/2016. The heart size and pulmonary vascularity are normal. No pulmonary infiltrate is seen. There is no evidence of pleural fluid. IMPRESSION: No acute cardiopulmonary abnormality is detected.
[2016-11-20] MEDS: ACETAMINOPHEN 325 MG TABLET PO PRN (08:16)
--- NOTE | 2016-11-20 09:25 | EKG ---
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
--- NOTE | 2016-11-20 09:32 | PDOC2 ---
KIRANRONY Christine CNA PER DIEM 11/20/16 0932: CONSULT Date of Admission DATE: 11/20/16 TIME: 09:21 Reason for Consult: chest pain Problem List Problems Medical Problems: (1) Chest pain Status: Acute History of Present Illness Mr Zeng is a 36 year old male who presents to the ED with complaints of chest pain. He has been seen in the ED several times in the last month for possible seizure activity, falls and for chest pain on 11/03. He complains of chest tightness that is non exertional in nature without radiation. He reports increased pain with deep inspiration but denies other exacerbating or relieving factors. He denies associated dyspnea, diaphoresis, nausea. He complains of feeling unable to urinate. He reports his chest pain has been consistent since admission and off and on for a long time prior to this. He denies any improvement with Toradol and requests morphine. He is currently resting quietly , watching TV and does not outwardly appear to be in any discomfort. He denies palpitations, lightheadedness or syncope. Past Medical History traumatic brain injury, Posttraumatic stress disorder, seizure disorder, diabetes mellitus, obstructive sleep apnea, anxiety, depression, personality disorder, chronic bronchitis, GERD, arthritis, gout, hypertension and hyperlipidemia. Past Surgical History Significant for tonsillectomy, history of right knee fracture requiring surgery. Family History non contributory Social History The patient lives in a half way house. He is not working. He is disabled. He currently denies history of tobacco use although ER record from ~1 month ago reports he was planning to quit smoking. He denies use of alcohol or drugs. Gets his health care at the [facility]. He has a prior history of inpatient treatment for suicidal ideation. Current Medications Current Medications Aspirin (Lana Aspirin) 325 mg 1X ONCE PO Last administered on 11/20/16 03:30 ; Start 11/20/16 at 03:30; Stop 11/20/16 at 03:31; Status DC Ketorolac Tromethamine (Toradol) 30 mg 1X ONCE IV ; Start 11/20/16 at 03:30; Stop 11/20/16 at 03:31; Status DC Ketorolac Tromethamine (Toradol) 30 mg 1X ONCE IM Last administered on 04:10; Start 11/20/16 at 04:30; Stop 11/20/16 at 04:31; Status DC Acetaminophen (Tylenol) 650 mg PRN Q6HRS PRN PO MILD PAIN / TEMP Last administered on 11/20/16t 08:16; Start 11/20/16 at 06:30 Ondansetron HCl (Zofran) 4 mg PRN Q6HRS PRN IV NAUSEA/VOMITING; Start 11/20/16 at 06:30 Active Scripts Active Reported Prazosin Hcl 1 Mg Capsule 1 Mg PO QHS LAST DOSE GIVEN: DATE: YESTERDAY TIME: AT BEDTIME NEXT DOSE DUE: DATE: TODAY TIME: AT BEDTIME Fiorinal 50-325-40 Mg Capsule (Butalbital/Aspirin/Caffeine) 1 Each Capsule 1 Each PO PRN Q8HRS PRN LAST DOSE GIVEN: DATE: TODAY TIME: 1:15 PM NEXT DOSE DUE: DATE: TODAY TIME: AFTER 9:15 PM, IF NEEDED Zanaflex (Tizanidine HCl) 4 Mg Tablet 4 Mg PO TID LAST DOSE GIVEN: DATE: TIME: AFTERNOON NEXT DOSE DUE: DATE: TODAY TIME: PM Spiriva (Tiotropium [place]) 18 Mcg Cap.w.dev 1 Cap IH DAILY LAST DOSE GIVEN: DATE: TODAY TIME: AM NEXT DOSE DUE: DATE: TOMORROW TIME: AM Simvastatin 20 Mg Tablet 1 Tab PO QHS LAST DOSE GIVEN: DATE: YES TIME: AT BEDTIME NEXT DOSE DUE: DATE: TODAY TIME: AT BEDTIME Naproxen 500 Mg Tablet 1 Tab PO BID PRN LAST DOSE GIVEN: DATE: TIME: NEXT DOSE DUE: DATE: TODAY TIME: IF NEEDED Nasonex (Mometasone Furoate) 17 Gm [place].pump 1 Spr NS HS LAST DOSE GIVEN: DATE: YESTER TIME: AT BEDTIME NEXT DOSE DUE: DATE: TODAY TIME: AT BEDTIME Metformin Hcl 1,000 Mg Tablet 1 Tab PO BID LAST DOSE GIVEN: DATE: TODAY TIME: AM NEXT DOSE DUE: DATE: TODAY TIME: PM Meclizine Hcl 25 Mg Tablet 1 Tab PO TID PRN LAST DOSE GIVEN: DATE: TIME: NEXT DOSE DUE: DATE: TODAY TIME: IF NEEDED Magnesium Oxide 400 Mg Tablet 1 Tab PO DAILY LAST DOSE GIVEN: DATE: TODAY TIME: AM NEXT DOSE DUE: DATE: TOMORROW TIME: AM Lidocaine-Prilocaine Cream (Lidocaine/Prilocaine) 30 Gm Cream..g. 1 [place]an TP PRN TID PRN LAST DOSE GIVEN: DATE: TIME: NEXT DOSE DUE: DATE: TODAY TIME: IF NEEDED Levothyroxine Sodium 125 Mcg Tablet 1 Tab PO DAILY LAST DOSE GIVEN: DATE: TODAY TIME: AM NEXT DOSE DUE: DATE: TOMORROW TIME: AM Hydroxyzine Hcl 25 Mg Tablet 1 Tab PO PRN QID PRN LAST DOSE GIVEN: DATE: TIME: NEXT DOSE DUE: DATE: TIME: IF NEEDED Fluoxetine Hcl 10 Mg Capsule 5 Cap PO DAILY LAST DOSE GIVEN: DATE: TODAY TIME: AM NEXT DOSE DUE: DATE: TOMORR TIME: AM Clonidine Hcl 0.1 Mg Tablet 0.1 Mg PO TID LAST DOSE GIVEN: DATE: TIME: AFTERNOON NEXT DOSE DUE: DATE: TIME: PM Qvar 80MCG Inhaler (Beclomethasone Dipropionate) 8.7 Gm Aer.w.adap 1 Puff IH BID LAST DOSE GIVEN: DATE: TIME: AM NEXT DOSE DUE: DATE: TIME: AM Allopurinol 300 Mg Tablet 1 Tab PO DAILY LAST DOSE GIVEN: DATE: TODAY TIME: AM NEXT DOSE DUE: DATE: TIME: AM Lisinopril 10 Mg Tablet 1 Tab PO DAILY LAST DOSE GIVEN: DATE: TIME: AM NEXT DOSE DUE: DATE: TIME: AM Topamax (Topiramate) 200 Mg Tablet 0.5 Tab PO BID LAST DOSE GIVEN: DATE: TIME: AM NEXT DOSE DUE: DATE: TODAY TIME: PM Divalproex Sodium Er (Divalproex Sodium) 500 Mg Tab.er.24h 4 Tab PO HS LAST DOSE GIVEN: DATE: YESTER TIME: AT BEDTIME NEXT DOSE DUE: DATE: TODAY TIME: AT BEDTIME Tylenol (Acetaminophen) 325 Mg Tablet 1-2 Tab PO QID LAST DOSE GIVEN: DATE: TODAY TIME: 2 PM NEXT DOSE DUE: DATE: TODAY TIME: 5 PM Allergies: Coded Allergies: venom-honey bee (Verified Allergy, Severe, 11/20/16) Penicillins (Verified Allergy, Intermediate, 11/14/16) hydrocodone (Verified Allergy, Intermediate, 11/20/16) oxycodone (Verified Allergy, Intermediate, 11/20/16) Review of System as per HPI General: Alert, Oriented X3, Cooperative, No acute distress HEENT: Atraumatic, EOMI, Mucous membr. moist/pink Lungs: Clear to auscultation Heart: Regular rate, Normal S1, Normal S2, Other (no gallops, clicks or rubs) Abdomen: Normal bowel sounds, Soft, No tenderness Extremities: No cyanosis, Normal pulses Neuro: Normal speech, Strength at 5/5 X4 ext Psych/Mental Status: Mood NL VITALS Vital Signs Date Time Temp Pulse Resp B/P Pulse Ox O2 Delivery O2 Flow Rate FiO2 11/20/16 06:22 Room Air 11/20/16 06:19 90 20 131/86 97 11/20/16 06:01 98.3 Labs Laboratory Tests Test 11/20/16 03:40 11/20/16 05:45 11/20/16 07:43 White Blood Count 6.0x10^3/uL (4.0-11.0) Red Blood Count 4.71x10^6/uL (4.30-5.70) Hemoglobin 13.5g/dL (13.0-17.5) Hematocrit 40.7% (39.0-53.0) Mean Corpuscular Volume 87fL (79-100) Mean Corpuscular Hemoglobin 29pg (25-35) Mean Corpuscular Hemoglobin Concent 33g/dL (31-37) Red Cell Distribution Width 13.8% (11.5-14.5) Platelet Count 187x10^3/uL (140-400) Neutrophils (%) (Auto) 53% (31-73) Lymphocytes (%) (Auto) 40% (24-48) Monocytes (%) (Auto) 6% (0-9) Eosinophils (%) (Auto) 1% (0-3) Basophils (%) (Auto) 0% (0-3) Neutrophils # (Auto) 3.2x10^3uL (1.8-7.7) Lymphocytes # (Auto) 2.4x10^3/uL (1.0-4.8) Monocytes # (Auto) 0.4x10^3/uL (0.0-1.1) Eosinophils # (Auto) 0.0x10^3/uL (0.0-0.7) Basophils # (Auto) 0.0x10^3/uL (0.0-0.2) Prothrombin Time 11.0SEC (9.4-11.4) Prothromb Time International Ratio 1.1 (0.9-1.1) D-Dimer (Mary) < 0.19mg/L (0.00-0.50) Sodium Level 142mmol/L (136-145) Potassium Level 3.6mmol/L (3.5-5.1) Chloride Level 106mmol/L (98-107) Carbon Dioxide Level 23mmol/L (21-32) Anion Gap 13 (6-14) Blood Urea Nitrogen 12mg/dL (8-26) Creatinine 0.9mg/dL (0.7-1.3) Estimated GFR (Cockcroft-Gault) 96.6 BUN/Creatinine Ratio 13 (6-20) Glucose Level 98mg/dL (70-99) Calcium Level 8.7mg/dL (8.5-10.1) Total Bilirubin 0.3mg/dL (0.2-1.0) Aspartate Amino Transf (AST/SGOT) 26U/L (15-37) Alanine Aminotransferase (ALT/SGPT) 80U/L (16-63) Alkaline Phosphatase 75U/L (46-116) Creatine Kinase 65U/L (39-308) Creatine Kinase MB (Mass) 0.9ng/mL (0.0-3.6) Creatine Kinase MB Relative Index 1.4% (0-4) Troponin I Quantitative < 0.017ng/mL (0-0.055) ZM-Crv-W-Type Natriuretic Peptide 15pg/mL (0-124) Total Protein 6.6g/dL (6.4-8.2) Albumin 3.7g/dL (3.4-5.0) Albumin/Globulin Ratio 1.3 (1.0-1.7) Urine Collection Type Unknown Urine Color Yellow Urine Clarity Clear Urine pH 6.5 Urine Specific [place] 1.010 Urine Protein Neg (NEG-TRACE) Urine Glucose (UA) Negmg/dL (NEG) Urine Ketones (Stick) Negmg/dL (NEG) Urine Blood Neg (NEG) Urine Nitrite Neg (NEG) Urine Bilirubin Neg (NEG) Urine Urobilinogen Dipstick 0.2mg/dL (0.2 mg/dL) Urine Leukocyte Esterase Neg (NEG) Urine RBC 0/HPF (0-2) Urine WBC Rare/HPF (0-4) Urine Squamous Epithelial Cells Occ/LPF Urine Bacteria 0/HPF (0-FEW) Glucose (Fingerstick) 136mg/dL (70-99) Images CXR - IMPRESSION: No acute cardiopulmonary abnormality is detected. Assessment/Plan 1. chest pain, atypical - cardiac enz negative x 1. + RF of hypertension, hyperlipidemia and diabetes. agree with echo. monitor serial enzymes. past records indicate prior ischemic evaluation. Will request any prior cardiac testing records. 2. hypertension - currently controlled. 3. hyperlipidemia - check lipids 4. diabetes 5. h/o recurrent pseudoseizure Problems: JET COLLIER MD 11/20/16 1651: CONSULT Allergies: Coded Allergies: venom-honey bee (Verified Allergy, Severe, 11/20/16) Penicillins (Verified Allergy, Intermediate, 11/14/16) hydrocodone (Verified Allergy, Intermediate, 11/20/16) oxycodone (Verified Allergy, Intermediate, 11/20/16) Assessment/Plan Patient seen and examined Atypical chest pain. No acute EKG changes. Initial troponin normal. Echocardiogram for abnormal LV function. We'll continue medical treatment. If echocardiogram shows normal LV function will consider outpatient stress testing. Hypertension. Reasonable control. Continue present medications. Hyperlipidemia. We'll check a lipid panel. Diabetes mellitus. As per the primary service. Thank you for allowing us to participate in the care of your patient. Problems: RONY BECK APRN Nov 20, 2016 09:32 JET COLLIER MD Nov 20, 2016 16:51
--- NOTE | 2016-11-20 10:03 | EKG ---
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
[2016-11-20] MEDS ORDERED: METF-550 PO (10:46)
[2016-11-20] MEDS ORDERED: PRAZ5CAP2 PO (10:46)
[2016-11-20] MEDS ORDERED: ASPI81TA9 PO (10:46)
[2016-11-20] MEDS ORDERED: ALBU8.5H3 INH (10:46)
[2016-11-20] MEDS: FENTANYL PF 100 MCG/2 ML VIAL. IV PRN ×2 (11:04→14:26)
[2016-11-20] MEDS ORDERED: BUDE10.22 IH (11:18)
[2016-11-20] MEDS ORDERED: LAMO25TA PO (11:23)
[2016-11-20] MEDS ORDERED: CLON0.5T3 PO (11:23)
[2016-11-20] MEDS ORDERED: FAMO20TA5 PO (11:23)
[2016-11-20] MEDS ORDERED: M-SA237L TP (11:25)
[2016-11-20] MEDS ORDERED: MUPI22OI2 TP (11:27)
[2016-11-20] MEDS ORDERED: PARO40TA3 PO (11:30)
[2016-11-20] MEDS ORDERED: ZOLP5TAB5 PO (11:30)
[2016-11-20 11:31] VITALS: BP 130/85
[2016-11-20] MEDS: ONDANSETRON PF 4 MG/2 ML VIAL. IV PRN (12:39)
--- NOTE | 2016-11-20 12:53 | CARD ---
APPROVED REPORT EXAM: Two-dimensional and M-mode echocardiogram with Doppler and color Doppler. Other Information Quality : Good INDICATION Chest Pain History of Pericarditis 2D DIMENSIONS RVDd3.0 (2.9-3.5cm)Left Atrium(2D)3.7 (1.6-4.0cm) IVSd1.2 (0.7-1.1cm)Aortic Root(2D)3.2 (2.0-3.7cm) LVDd4.1 (3.9-5.9cm)PWd1.2 (0.7-1.1cm) LVDs2.5 (2.5-4.0cm)FS (%) 30.0 % SV50.9 mlLVEF(%)60.0 (>50%) Aortic Valve AoV Peak Conor.176.8cm/sAoV VTI27.3cm AO Peak GR.12.5mmHgAO Mean GR.7mmHg SHERRI (VTI)3.64cm2 Mitral Valve MV E Bgsvejfd81.1cm/sMV DECEL [id number] MV A Jgnrquus56.5cm/sE/A Ratio0.9 Tricuspid Valve TR P. Rrqlanks766yl/sRAP [id number] TR Peak Gr.[id number] LEFT VENTRICLE The left ventricle is normal size. There is mild concentric left ventricular hypertrophy. Proximal se ptal thickening is noted. The left ventricular systolic function is normal. The Ejection Fraction is 55-60%. There is normal LV segmental wall motion. RIGHT VENTRICLE The right ventricle is normal size. The right ventricular systolic function is normal. ATRIA The left atrium size is normal. The right atrium size is normal. The interatrial septum is intact wit h no evidence for an atrial septal defect or patent foramen ovale as noted on 2-D or Doppler imaging. AORTIC VALVE The aortic valve is normal in structure and function. Doppler and Color Flow revealed no significant aortic regurgitation. There is no significant aortic valvular stenosis. MITRAL VALVE The mitral valve is normal in structure and function. There is no evidence of mitral valve prolapse. There is no mitral valve stenosis. Doppler and Color-flow revealed trace mitral regurgitation. TRICUSPID VALVE The tricuspid valve is normal in structure and function. Doppler and Color Flow revealed trace to mil d tricuspid regurgitation. There is mild pulmonary hypertension. The PA pressure was estimated at 32 mmHg. There is no tricuspid valve stenosis. PULMONIC VALVE The pulmonary valve is normal in structure and function. Doppler and Color Flow revealed trace pulmon ic valvular regurgitation. There is no pulmonic valvular stenosis. GREAT VESSELS The aortic root is normal in size. The ascending aorta is normal in size. The IVC is normal in size a nd collapses >50% with inspiration. PERICARDIAL EFFUSION There is no evidence of significant pericardial effusion. Critical Notification Critical Value: No <Conclusion> The left ventricular systolic function is normal. The Ejection Fraction is 55-60%. There is normal LV segmental wall motion. Trace mitral regurgitation. Trace to mild tricuspid regurgitation. The PA pressure was estimated at 32 mmHg. There is no evidence of significant pericardial effusion.
[2016-11-20] MEDS: NITROGLYCERIN SUBLINGUAL 0.4 MG BOTTLE OF 25. SL PRN (15:08)
[2016-11-20 15:42] VITALS: BP 143/91
[2016-11-20] MEDS ORDERED: ALBUTEROL SULFATE 8GM INHALER. INH PRN (15:45)
[2016-11-20] MEDS ORDERED: ACETAMINOPHEN 325 MG TABLET PO PRN (15:45)
[2016-11-20] MEDS ORDERED: ALBUTEROL SULFATE 2.5 MG/3 ML NEBU. NEB PRN (16:15)
--- NOTE | 2016-11-20 17:36 | SSS ---
ADMIT DATE: 11/20/2016 HISTORY OF PRESENT ILLNESS: The patient is a 36-year-old male patient, who came to the Emergency Room with a complaint of chest pain. He has been seen in the Emergency Room several times in the last month for possible seizure activity, falls and for chest pain on 11/03/2016. He complains of chest tightness that is nonexertional in nature without radiation. Reports increased pain with deep inspiration, but denies any other exacerbating or relieving factors. Denied any dyspnea, diaphoresis, nausea. He complains of feeling unable to urinate. He reports his chest pain has been consistent since admission off and on for a long time. He was admitted to the hospital and has had 3 sets of cardiac enzymes, all negative. EKG did not show any evidence of ischemic changes, no ST segment elevation or depression. He was actually seen by the Cardiology team and in fact has had an echocardiogram done was also read as normal. Left ventricular systolic function is normal. His ejection fraction is 55% to 60%. He has normal left ventricular segmental wall motion, trace mitral regurgitation, mild tricuspid regurgitation. His pulmonary artery pressure was estimated 32 mm per hour and there is no evidence of significant pericardial effusion. PAST MEDICAL HISTORY: Significant for pseudoseizures, chronic headaches, hypertension, type 2 diabetes, hypothyroidism, gout, posttraumatic stress disorder and traumatic brain injury. PAST SURGICAL HISTORY: Unremarkable. ALLERGIES: PENICILLIN, HYDROCODONE, OXYCODONE and BEE VENOM. FAMILY HISTORY: Unremarkable. SOCIAL HISTORY: The patient lives in a [facility]. He is disabled. He continues to smoke. Gets his health care at the [facility]. He does not drink alcohol. PHYSICAL EXAMINATION: GENERAL: On arrival to the Emergency Room, he looked well and was clearly in no apparent respiratory distress. No pallor, jaundice, cyanosis, or thyromegaly. No jugular venous distention. No limb edema. VITAL SIGNS: His heart rate was 97, blood pressure 143/91, temperature was 98.3, respiratory rate 20, and oxygen saturation was 92%. HEAD, EYES, EARS, NOSE AND THROAT: Showed normocephalic, atraumatic. NECK: Supple. HEART: Showed normal first and second heart sounds with no gallop, rub or murmur. CHEST: Clear to auscultation. No crepitation or rhonchi. ABDOMEN: Distended, soft, nontender. NEUROLOGIC: He was awake, alert, responding appropriately. Cranial nerves intact. EXTREMITIES: He moves extremities without difficulty. LABORATORY DATA: Showed a white cell count of 6000, hemoglobin 13.5, hematocrit 40.7, MCV 87 and platelet count of 187,000. His prothrombin time was 11, INR 1.1. D-dimer was 0.19. Chemistry showed that his serum sodium was 142, potassium 3.6, chloride 106, bicarbonate 23, anion gap of 13, BUN 12, creatinine 0.9, estimated GFR was 97, glucose was 98, calcium was 8.7. Total bilirubin, AST, alkaline phosphatase normal. ALT slightly elevated. His total protein was 6.6, albumin 3.7. TSH was 3.145. He has 3 sets of cardiac enzymes, all of them showed troponin to be less than 0.017. His EKG showed normal sinus rhythm with no ST segment elevation or depression. As I stated, his echocardiogram was also unremarkable, showed normal left ventricular systolic function, ejection fraction of 55% to 60%. He was seen in consultation by the Cardiology team and they recommended that the stress test can be arranged for him to be done as an outpatient as he remains stable and all his lab work, EKG and echocardiogram were normal. The patient was discharged back to the [facility]. residential to continue on Tylenol 650 mg 3 times a day, albuterol sulfate for ProAir 1 puff 4 times a day, aspirin 81 mg once a day, budesonide formoterol for Symbicort 2 puffs twice a day, clonazepam 0.5 mg 3 times a day, famotidine 20 mg p.o. b.i.d., lamotrigine 25 mg at bedtime, levothyroxine 125 mcg once a day, lisinopril 10 mg once a day, metformin 500 mg twice a day, paroxetine 40 mg at bedtime, prazosin 5 mg at bedtime, simvastatin 20 mg at bedtime, Topamax 100 mg twice a day and Ambien 5 mg at bedtime. FINAL DISCHARGE DIAGNOSES: Atypical chest pain, myocardial infarction ruled out, hypertension, type 2 diabetes, hypothyroidism, gout, posttraumatic stress disorder, traumatic brain injury. NEHEMIAH MORA MD DR: CHRISTA/jasmin JOB#: [id number] / [id number]
[2016-11-20] MEDS: METFORMIN XR 500 MG TAB.ER.24H PO SCH (17:48)
[2016-11-20] MEDS: FAMOTIDINE 20 MG TABLET PO SCH (17:48)
[2016-11-20] MEDS ORDERED: BUDESONIDE 0.5 MG/2 ML NEBU NEB SCH (20:00)
[2016-11-20] MEDS ORDERED: ALBUTEROL SULFATE 2.5 MG/3 ML NEBU. NEB SCH (20:00)
[2016-11-20] MEDS ORDERED: lamoTRIgine 25 MG TABLET. PO SCH (21:00)
[2016-11-20] MEDS ORDERED: CLONAZEPAM 0.5 MG TABLET PO SCH (21:00)
[2016-11-20] MEDS ORDERED: TOPIRAMATE 100 MG TABLET. PO SCH (21:00)
[2016-11-20] MEDS ORDERED: ZOLPIDEM 5 MG TABLET. PO SCH (21:00)
[2016-11-20] MEDS ORDERED: METHYL SALICYLATE/MENTHOL TOPICAL OINTMENT 29GM TUBE. TP SCH (21:00)
[2016-11-20] MEDS ORDERED: SIMVASTATIN 20 MG TABLET PO SCH (21:00)
[2016-11-20] MEDS ORDERED: PRAZOSIN 5 MG CAPSULE. PO SCH (21:00)
[2016-11-20] MEDS ORDERED: NON FORMULARY ITEM (Budesonide/Formoterol Fumarate (Symbicort 80-4.5 Mcg Inhaler) 2 PUFF) IH SCH (21:00)
[2016-11-21] MEDS ORDERED: LEVOTHYROXINE 125 MCG TABLET PO SCH (06:00)
[2016-11-21] MEDS ORDERED: LISINOPRIL 10 MG TABLET PO SCH (09:00)
[2016-11-21] MEDS ORDERED: ASPIRIN ENTERIC COATED 81 MG TABLET.DR. PO SCH (09:00)
[2016-11-21] MEDS ORDERED: PAROXETINE 20 MG TABLET. PO SCH (09:00)
[2016-11-21] MEDS ORDERED: MUPIROCIN 2% TOPICAL OINTMENT 22GM TUBE. TP SCH (09:00)
--- NOTE | 2016-11-24 17:13 | EKG ---
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
== END 2016-11-20 18:08 | disposition home or self-care (01) ==
LOC: ER 02:45 → 1 SOUTH 05:00
PROVIDERS: ADMIT Internal Medicine; ATTEND Internal Medicine
DX: R07.89 Other chest pain (principal); I10 Essential (primary) hypertension; E11.9 Type 2 diabetes mellitus without complications; E03.9 Hypothyroidism, unspecified; M10.9 Gout, unspecified; F43.10 Post-traumatic stress disorder, unspecified; S06.9X0A Unspecified intracranial injury without loss of consciousness, initial encounter; G89.29 Other chronic pain; G40.909 Epilepsy, unspecified, not intractable, without status epilepticus; G47.33 Obstructive sleep apnea (adult) (pediatric); F60.9 Personality disorder, unspecified; K21.9 Gastro-esophageal reflux disease without esophagitis; E78.5 Hyperlipidemia, unspecified; M19.90 Unspecified osteoarthritis, unspecified site; E78.00 Pure hypercholesterolemia, unspecified; F41.9 Anxiety disorder, unspecified; F32.9 Major depressive disorder, single episode, unspecified; F17.200 Nicotine dependence, unspecified, uncomplicated; Z86.711 Personal history of pulmonary embolism; Z86.718 Personal history of other venous thrombosis and embolism
CPT/HCPCS: 36415; 71010; 80053; 80061; 81001; 82550; 82553; 82947; 83880; 84443; 84484; 85027; 85379; 85610; 87641; 93005; 93306; 96372; 96374; 96375; 96376; 99285; G0378; J1885; J2405; J3010; G0379

== ENCOUNTER 2016-12-01 20:59 | Emergency (ER) | payer MEDICARE, OTHER, MEDICAID ==
[~2016-12-01] VITALS: Ht 167.6 cm; Wt 98.0 kg
[~2016-12-01 20:59] MED LIST changes: +ALBU8.5H3 INH; +ASPI81TA9 PO; +BUDE10.22 IH; +CLON0.5T3 PO; +FAMO20TA5 PO; +LAMO25TA PO; +M-SA237L TP; +METF-550 PO; +MUPI22OI2 TP; +PARO40TA3 PO; +PRAZ5CAP2 PO; +ZOLP5TAB5 PO
[2016-12-01 21:02] VITALS: BP 144/90
--- NOTE | 2016-12-01 21:21 | ED.ADGEN ---
Past History Past Medical History: Depression, Diabetes, Hypertension, Seizure, Other Past Surgical History: Tonsillectomy, Other Smoking: Cigarettes Alcohol Use: None Drug Use: None Adult General Chief Complaint Chief Complaint "... I guess I had a pseudo seizure... I just got out rehab... [facility].. ".." I had a seizure right in front of the fire department.." . This lady stopped to help... ".. HPI HPI Patient is a 36 year old male who presents with hx of tonic clonic pseudo seizure. Pt. reportedly just released from rehab. [facility]. Pt. 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 Pt. usually requesting female to place a catheter. Patient does have a history of PTSD. Patient has history of prior brain trauma. Patient has history of polysubstance abuse. No recent travel. No specific ill contacts. Today patient complaints of hitting his head on sidewalk and neck stiffness after a pseudo seizure episode. Pt. denies other injury. Review of Systems Review of Systems Constitutional: Denies fever or chills [] Eyes: Denies change in visual acuity, redness, or eye pain [] HENT: Denies nasal congestion or sore throat [] Respiratory: Denies cough or shortness of breath [] Cardiovascular: No additional information not addressed in HPI [] GI: Denies abdominal pain, nausea, vomiting, bloody stools or diarrhea [] : Denies dysuria or hematuria [] Musculoskeletal: Denies back pain or joint pain [] Integument: Denies rash or skin lesions [] Neurologic: Denies headache, focal weakness or sensory changes [] Pt. complaints he had a pseudo seizure. Endocrine: Denies polyuria or polydipsia [] Family History Family History Noncontributory Current Medications Current Medications Current Medications Medications (Trade) Dose Ordered Sig/Chana Start Time Stop Time Status Last Admin Dose Admin Lorazepam (Ativan) 2 mg 1X ONCE 12/01/16 21:30 12/01/16 21:31 DC 12/01/16 21:39 2 MG Allergies Allergies Allergies Coded Allergies Type Severity Reaction Last Updated Verified venom-honey bee Allergy Severe 11/20/16 Yes Penicillins Allergy Intermediate 11/14/16 Yes hydrocodone Allergy Intermediate 11/20/16 Yes oxycodone Allergy Intermediate 11/20/16 Yes Physical Exam Physical Exam Constitutional: , no acute distress, non-toxic appearance. [] HENT: Normocephalic, atraumatic, bilateral external ears normal, oropharynx moist, no oral exudates, nose normal. Scar Eyes: PERRLA, EOMI, conjunctiva normal, no discharge. [] Neck: Normal range of motion, no tenderness, supple, no stridor. [] Cardiovascular:Heart rate regular rhythm, no murmur [] Lungs & Thorax: Bilateral breath sounds equal at apexes with a few scattered wheezes on auscultation [] Abdomen: Bowel sounds normal, soft, no tenderness, no masses, no pulsatile masses. Good sphincter tone. No findings of defecation or incontinence of urine Skin: Warm, dry, no erythema, no rash. [] Back: No tenderness, no CVA tenderness. [] Extremities: No tenderness, no cyanosis, no clubbing, ROM intact, no edema. Slight bilateral clonus 3-4 beats. Hyperreflexia patella . No Neurologic: Alert and oriented X 3, normal motor function, normal sensory function, no focal deficits noted. No Romberg. Return to nose good. [employer] equal. Psychologic: Affect normal, judgement poor insight, mood normal. [] Current Patient Data Vital Signs Vital Signs Date Time Temp Pulse Resp B/P Pulse Ox O2 Delivery O2 Flow Rate FiO2 12/01/16 21:02 98.6 108 16 100 Room Air Lab Results Laboratory Tests Test 12/01/16 21:25 12/01/16 22:10 White Blood Count 7.0x10^3/uL (4.0-11.0) Red Blood Count 4.31x10^6/uL (4.30-5.70) Hemoglobin 12.2g/dL (13.0-17.5) L Hematocrit 37.1% (39.0-53.0) L Mean Corpuscular Volume 86fL (79-100) Mean Corpuscular Hemoglobin 28pg (25-35) Mean Corpuscular Hemoglobin Concent 33g/dL (31-37) Red Cell Distribution Width 14.3% (11.5-14.5) Platelet Count 200x10^3/uL (140-400) Neutrophils (%) (Auto) 60% (31-73) Lymphocytes (%) (Auto) 32% (24-48) Monocytes (%) (Auto) 7% (0-9) Eosinophils (%) (Auto) 1% (0-3) Basophils (%) (Auto) 0% (0-3) Neutrophils # (Auto) 4.2x10^3uL (1.8-7.7) Lymphocytes # (Auto) 2.3x10^3/uL (1.0-4.8) Monocytes # (Auto) 0.5x10^3/uL (0.0-1.1) Eosinophils # (Auto) 0.1x10^3/uL (0.0-0.7) Basophils # (Auto) 0.0x10^3/uL (0.0-0.2) Prothrombin Time 10.3SEC (9.4-11.4) Prothrombin Time INR 1.0 (0.9-1.1) PTT 26SEC (23-33) Sodium Level 145mmol/L (136-145) Potassium Level 3.6mmol/L (3.5-5.1) Chloride Level 108mmol/L (98-107) H Carbon Dioxide Level 25mmol/L (21-32) Anion Gap 12 (6-14) Blood Urea Nitrogen 11mg/dL (8-26) Creatinine 1.1mg/dL (0.7-1.3) Estimated GFR (Cockcroft-Gault) 76.6 Glucose Level 136mg/dL (70-99) H Calcium Level 8.4mg/dL (8.5-10.1) L Magnesium Level 1.8mg/dL (1.8-2.4) Creatine Kinase 240U/L (39-308) Creatine Kinase MB (Mass) 1.6ng/mL (0.0-3.6) Creatine Kinase MB Relative Index 0.7% (0-4) Troponin I Quantitative < 0.017ng/mL (0-0.055) Urine Collection Type Unknown Urine Color Yellow Urine Clarity Clear Urine pH 6.5 Urine Specific [place] 1.010 Urine Protein Neg (NEG-TRACE) Urine Glucose (UA) Negmg/dL (NEG) Urine Ketones (Stick) Negmg/dL (NEG) Urine Blood Neg (NEG) Urine Nitrite Neg (NEG) Urine Bilirubin Neg (NEG) Urine Urobilinogen Dipstick 0.2mg/dL (0.2 mg/dL) Urine Leukocyte Esterase Neg (NEG) Urine RBC Rare/HPF (0-2) Urine WBC Occ/HPF (0-4) Urine Squamous Epithelial Cells Occ/LPF Urine Bacteria 0/HPF (0-FEW) Urine Opiates Screen Neg (NEG) Urine Methadone Screen Neg (NEG) Urine Barbiturates Neg (NEG) Urine Phencyclidine Screen Neg (NEG) Urine Amphetamine/Methamphetamine Neg (NEG) Urine Benzodiazepines Screen Neg (NEG) Urine Cocaine Screen Neg (NEG) Urine Cannabinoids Screen Neg (NEG) Urine Ethyl Alcohol Neg (NEG) EKG EKG My interpretation of EKG shows a sinus rhythm at 98 bpm. No findings acute STEMI. Some J-point elevation in V2 and 3. [] Radiology/Procedures Radiology/Procedures I interpretation CT head shows no shift, mass, edema, bleed, or fracture [] Course & Med Decision Making Course & Med Decision Making Pertinent Labs and Imaging studies reviewed. (See chart for details) [facility] Patient return if any concerns. [] Final Impression Final Impression 1. Hx of Pseudo seizure 2. Complaint of head and neck injury[] 3. Diabetes 4. Anemia 5. History of seizure disorder 6. History of posttraumatic syndrome- Head Injury Problems: Dragon Disclaimer Dragon Disclaimer This electronic medical record was generated, in whole or in part, using a voice recognition dictation system. STORM DELUNA MD Dec 01, 2016 21:21
[2016-12-01] MEDS: LORAZEPAM 2 MG/ML VIAL IM ONE (21:39)
[2016-12-01 22:01] LABS: BASO % 0 % (0-3); EOS # 0.1 x10^3/uL (0.0-0.7); EOS % 1 % (0-3); HEMATOCRIT 37.1 % (39.0-53.0); HEMOGLOBIN 12.2 g/dL (13.0-17.5); LYMPH # 2.3 x10^3/uL (1.0-4.8); LYMPH % 32 % (24-48); MEAN CORPUSCULAR HEMOGLOBIN 28 pg (25-35); MEAN CORPUSCULAR HGB CONC 33 g/dL (31-37); MEAN CORPUSCULAR VOLUME 86 fL (79-100); MONO # 0.5 x10^3/uL (0.0-1.1); MONO % 7 % (0-9); NEUT # 4.2 x10^3uL (1.8-7.7); NEUT % 60 % (31-73); PLATELET COUNT 200 x10^3/uL (140-400); RED BLOOD COUNT 4.31 x10^6/uL (4.30-5.70); RED CELL DISTRIBUTION WIDTH 14.3 % (11.5-14.5)
--- NOTE | 2016-12-01 22:12 | RAD ---
PROCEDURE CT head and cervical spine without contrast. HISTORY Seizure tonight with fall. Hit head on sidewalk. COMPARISON CT head and cervical spine without contrast November 16, 2016. TECHNIQUE Helical CT imaging of the brain and of the cervical spine is performed without IV contrast. PQRS: One or more the following individualized dose reduction techniques were utilized for the study: 1. Automated exposure control. 2. Adjustment of the mA and/or kV according to patient size. 3. Use of iterative reconstruction technique. FINDINGS No acute calvarial fracture. Visualized globes and orbits are intact. Paranasal sinuses and mastoid air cells are clear. No midline shift or mass effect. No extra-axial fluid collection or intraparenchymal hemorrhage. Zepeda-white matter differentiation is preserved. Basilar cisterns are patent. Ventricles and sulci are normal for patient age. No acute fracture or subluxation of the cervical spine. Disc spaces are maintained. Facet joints and spinous processes are intact. Straightening of normal cervical lordosis may be positional or due to muscle spasm. The alignment is stable. Visualized lung apices are clear. Soft tissues of the neck unremarkable. IMPRESSION No acute intracranial abnormality. No acute fracture or subluxation of the cervical spine. Electronically signed by: Stan Johnston MD (Dec 01, 2016 22:11:22)
[2016-12-01 22:34] LABS: CALCIUM 8.4 mg/dL (8.5-10.1); CREATININE 1.1 mg/dL (0.7-1.3); GFR 76.6; MAGNESIUM 1.8 mg/dL (1.8-2.4); POTASSIUM 3.6 mmol/L (3.5-5.1)
[2016-12-01 22:47] LABS: AMPHETAMINE/METHAMPHETAMINE NEG (NEG); BACTERIA,URINE 0 /HPF (0-FEW); BARBITURATES NEG (NEG); BENZODIAZEPINES NEG (NEG); BILIRUBIN,URINE NEG (NEG); CANNABINOIDS NEG (NEG); CLARITY,URINE CLEAR; COCAINE NEG (NEG); COLOR,URINE YELLOW; GLUCOSE,URINE NEG (NEG); METHADONE NEG (NEG); NITRITE,URINE NEG (NEG); OPIATES NEG (NEG); PHENCYCLIDINE NEG (NEG); RBC,URINE RARE /HPF (0-2); SQUAMOUS EPITHELIAL CELL,UR OCC /LPF; UROBILINOGEN,URINE 0.2 mg/dL (0.2 mg/dL); WBC,URINE OCC /HPF (0-4)
--- NOTE | 2016-12-01 22:55 | ACF ---
Admission Criteria Forms SEIZURE Clinical Indications for Admission to Inpatient Care (Place 'X' for any and all applicable criteria): Admission is indicated for seizure and ANY ONE of the following(1)(2)(3)(4)(5): [ ]I. Inpatient admission required rather than observation care (Also use Seizure: Observation Care Criteria as appropriate) because of ANY ONE of the following: [ ]a) Altered mental status that is severe or persistent [ ]b) New focal neurologic deficit that is severe or persistent [ ]c) Metabolic disorder (eg, hypoglycemia, hyponatremia) that is severe or persistent [ ]d) Recurrent seizure [ ]e) Outpatient antiseizure regimen cannot be established (eg , patient cannot tolerate medication, initiation requires inpatient care) [ ]f) Need for ongoing intravenous infusion of antiseizure medication [ ]g) Cardiac arrhythmias of immediate concern [ ]h) Cerebral bleeding, hydrocephalus, or vasospasm monitoring (14) [ ]i) Increased intracranial pressure or cerebral edema monitoring (15) [ ]j) Other treatment or monitoring requiring inpatient admission [ ]II. Status epilepticus [A] or repetitive seizures not controlled with emergent treatment (6)(8) [ ]III. Brain disorder (eg, tumor, edema, and hydrocephalus) that requiring monitoring or intervention available only at inpatient level of care. [ ]IV. Brain insult (eg, severe trauma, stroke, drug toxicity, or withdrawal) that requires monitoring or intervention available only at inpatient level of care (10)(11) Extended stay beyond goal length of stay may be needed for (22) [ ]a) Complications of status epilepticus [ ]b) Refractory status epilepticus [ ]c) Etiology-specific therapy for conditions such as AUTOMOBILE B[employer] REPA[employer]ER infection, head injury,eclampsia, severe metabolic abnormalities, and brain tumor [ ]d) Residual neurologic damage, [ ]e) Initiation of significant change to anticonvulsant treatment [ ]f) Older patients (65 years or older) [ ]g) Patient requiring intubation (eg, to protect airway) The original [employer] content created by [employer] has been revised. The portions of the content which have been revised are identified through the use of italic text or in bold, and [facility] [employer] has neither reviewed nor approved the modified material. All other unmodified content is copyright [facility]. Please see references footnoted in the original [facility] edition 2016 HUSSEIN TOMPKINS Dec 01, 2016 22:55
--- NOTE | 2016-12-01 22:58 | EKG ---
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
== END 2016-12-01 23:30 | disposition home or self-care (01) ==
LOC: ER 20:59
DX: S09.90XA Unspecified injury of head, initial encounter (principal); S19.9XXA Unspecified injury of neck, initial encounter; E11.9 Type 2 diabetes mellitus without complications; D64.9 Anemia, unspecified; G40.909 Epilepsy, unspecified, not intractable, without status epilepticus; I10 Essential (primary) hypertension; F43.10 Post-traumatic stress disorder, unspecified; Z87.820 Personal history of traumatic brain injury; Z88.0 Allergy status to penicillin; Z88.6 Allergy status to analgesic agent; Z91.030 Bee allergy status; W22.8XXA Striking against or struck by other objects, initial encounter; Y93.89 Activity, other specified; Y99.8 Other external cause status; Y92.480 Sidewalk as the place of occurrence of the external cause
CPT/HCPCS: 36415; 70450; 72125; 80048; 80305; 81001; 82553; 83735; 84484; 85027; 85610; 85730; 93005; 96372; G0481; J2060; 99285-25

== ENCOUNTER 2016-12-03 06:18 | Emergency (ER) | payer MEDICARE, OTHER ==
[~2016-12-03] VITALS: Ht 167.6 cm; Wt 98.0 kg
[2016-12-03 06:49] LABS: BASO % 0 % (0-3); EOS % 1 % (0-3); HEMOGLOBIN 12.6 g/dL (13.0-17.5); LYMPH # 2.8 x10^3/uL (1.0-4.8); LYMPH % 35 % (24-48); MEAN CORPUSCULAR HEMOGLOBIN 29 pg (25-35); MEAN CORPUSCULAR HGB CONC 33 g/dL (31-37); MEAN CORPUSCULAR VOLUME 86 fL (79-100); MONO # 0.6 x10^3/uL (0.0-1.1); MONO % 7 % (0-9); NEUT # 4.6 x10^3uL (1.8-7.7); NEUT % 57 % (31-73); PLATELET COUNT 211 x10^3/uL (140-400); RED BLOOD COUNT 4.42 x10^6/uL (4.30-5.70); RED CELL DISTRIBUTION WIDTH 14.3 % (11.5-14.5); WHITE BLOOD COUNT 8.1 x10^3/uL (4.0-11.0)
--- NOTE | 2016-12-03 06:51 | EKG ---
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
[2016-12-03 06:55] LABS: BARBITURATES NEG (NEG); BENZODIAZEPINES NEG (NEG); BILIRUBIN,URINE NEG (NEG); CANNABINOIDS NEG (NEG); CLARITY,URINE CLEAR; COCAINE NEG (NEG); COLOR,URINE YELLOW; GLUCOSE,URINE NEG (NEG); METHADONE NEG (NEG); NITRITE,URINE NEG (NEG); OPIATES NEG (NEG); PHENCYCLIDINE NEG (NEG); UROBILINOGEN,URINE 0.2 mg/dL (0.2 mg/dL)
[2016-12-03 06:56] LABS: AMPHETAMINE/METHAMPHETAMINE NEG (NEG); BACTERIA,URINE 0 /HPF (0-FEW); RBC,URINE 0 /HPF (0-2); SQUAMOUS EPITHELIAL CELL,UR OCC /LPF; WBC,URINE 0 /HPF (0-4)
[2016-12-03 07:11] LABS: GFR 85.5; POTASSIUM 3.6 mmol/L (3.5-5.1)
[2016-12-03 09:10] VITALS: BP 122/80
--- NOTE | 2016-12-03 13:21 | ACF ---
Admission Criteria Forms PSYCHIATRIC DISORDERS Clinical Indications for Inpatient Care (Place 'X' for any and all applicable criteria): Ongoing inpatient care may be needed for ANY ONE of the following(1)(2)(3)(4)(6) (7)(8): [X]I. Danger to self or others not manageable at lower level of care. [ ]II. Grave disability (eg, inability to perform self care necessary at lower level of care) [ ]III. Agitation or inappropriate behavior interfering with care for primary condition (eg, attempting to discontinue lines or drains prematurely, unable to cooperate with respiratory care) [ ]IV. Severe disability or disorder indicated by ALL of the following: [ ]a) Severe behavioral health disorder-related symptoms or condition indicated by ANY ONE of the following: [ ]i) Severe problem with cognition, memory, judgment, or impulse control [ ]ii) Severe clinical manifestations (eg, hallucinations, delusions, other acute psychotic symptoms, jodi, extreme agitation or anxiety) [ ]b) Patient management at lower level of care is not feasible until acute intervention or modification is initiated. Extended stay beyond goal length of stay for the primary condition may be indicated when ANY ONE of the following is present: (1)(2)(3)(4): [ ]a) Patient is a danger to self or others and not manageable at lower level of care. [ ]b) Behavior crisis management, including physical or chemical restraints, is required and is not available at a lower level of care. [ ]c) Behavioral symptoms (e.g., agitation, somnolence, inappropriate behavior) are present, and are not manageable at a lower level of care. [ ]d) Patient cannot understand follow-up treatment and crisis plan. [ ]e) Provider and supports are not sufficiently available at lower level of care. [ ]f) Patient cannot participate (e.g., verify absence of plan for harm) and is in needed of monitoring. The original [employer] [facility] [employer] content created by [employer] has been revised. The portions of the content which have been revised are identified through the use of italic text or in bold, and [facility] has neither reviewed nor approved the modified material. All other unmodified content is copyright [facility] [employer]. Please see references footnoted in the original [facility] edition 2016 Admission Criteria Met?: Yes MAMI PINO Dec 03, 2016 13:21
--- NOTE | 2016-12-03 13:22 | ED.ADGEN ---
Past History Past Medical History: Depression, Diabetes, Hypertension, Seizure, Other Past Surgical History: Tonsillectomy, Other Smoking: Cigarettes Alcohol Use: None Drug Use: None Adult General HPI HPI Patient is a 36-year-old male presents emergency department by ambulance for suicidal ideation. Patient has a history of TBI post traumatic stress disorder as well as some other chronic medical conditions. 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 Patient states that he would like to cut himself with a knife. In fact, police did respond to the 911 call and asked she did remove a knife from his physician. Patient has had multiple admissions in the past for suicidal ideation. He is requesting that we send him someplace where he may get help today. He is a difficult historian cannot remember all of his medications are certainly his dosages. Is not certain when he has taken his medicines last period Review of Systems Review of Systems Constitutional: Denies fever or chills [] Eyes: Denies change in visual acuity, redness, or eye pain [] HENT: Denies nasal congestion or sore throat [] Respiratory: Denies cough or shortness of breath [] Cardiovascular: No additional information not addressed in HPI [] GI: Denies abdominal pain, nausea, vomiting, bloody stools or diarrhea [] : Denies dysuria or hematuria [] Musculoskeletal: Denies back pain or joint pain [] Integument: Denies rash or skin lesions [] Neurologic: Denies headache, focal weakness or sensory changes [] Endocrine: Denies polyuria or polydipsia [] Allergies Allergies Allergies Coded Allergies Type Severity Reaction Last Updated Verified venom-honey bee Allergy Severe 11/20/16 Yes Penicillins Allergy Intermediate 11/14/16 Yes hydrocodone Allergy Intermediate 11/20/16 Yes oxycodone Allergy Intermediate 11/20/16 Yes Physical Exam Physical Exam Constitutional: Well developed, well nourished, no acute distress, non-toxic appearance. [] HENT: Normocephalic, atraumatic, bilateral external ears normal, oropharynx moist, no oral exudates, nose normal. [] Eyes: PERRLA, EOMI, conjunctiva normal, no discharge. [] Neck: Normal range of motion, no tenderness, supple, no stridor. [] Cardiovascular:Heart rate regular rhythm, no murmur [] Lungs & Thorax: Bilateral breath sounds clear to auscultation [] Abdomen: Bowel sounds normal, soft, no tenderness, no masses, no pulsatile masses. [] Skin: Warm, dry, no erythema, no rash. [] Back: No tenderness, no CVA tenderness. [] Extremities: No tenderness, no cyanosis, no clubbing, ROM intact, no edema. [] Neurologic: Alert and oriented X 3, normal motor function, normal sensory function, no focal deficits noted. [] Psychologic: Flat affect, poor judgment, poor insight. [] Current Patient Data Vital Signs Vital Signs Date Time Temp Pulse Resp B/P Pulse Ox O2 Delivery O2 Flow Rate FiO2 12/03/16 09:10 90 18 122/80 98 Room Air 12/03/16 06:18 98.2 Lab Results Laboratory Tests Test 12/03/16 06:18 12/03/16 06:30 Urine Collection Type Unknown Urine Color Yellow Urine Clarity Clear Urine pH 5.0 Urine Specific [place] <=1.005 Urine Protein Neg (NEG-TRACE) Urine Glucose (UA) Negmg/dL (NEG) Urine Ketones (Stick) Negmg/dL (NEG) Urine Blood Trace (NEG) Urine Nitrite Neg (NEG) Urine Bilirubin Neg (NEG) Urine Urobilinogen Dipstick 0.2mg/dL (0.2 mg/dL) Urine Leukocyte Esterase Neg (NEG) Urine RBC 0/HPF (0-2) Urine WBC 0/HPF (0-4) Urine Squamous Epithelial Cells Occ/LPF Urine Bacteria 0/HPF (0-FEW) Urine Opiates Screen Neg (NEG) Urine Methadone Screen Neg (NEG) Urine Barbiturates Neg (NEG) Urine Phencyclidine Screen Neg (NEG) Urine Amphetamine/Methamphetamine Neg (NEG) Urine Benzodiazepines Screen Neg (NEG) Urine Cocaine Screen Neg (NEG) Urine Cannabinoids Screen Neg (NEG) Urine Ethyl Alcohol Neg (NEG) White Blood Count 8.1x10^3/uL (4.0-11.0) Red Blood Count 4.42x10^6/uL (4.30-5.70) Hemoglobin 12.6g/dL (13.0-17.5) L Hematocrit 38.0% (39.0-53.0) L Mean Corpuscular Volume 86fL (79-100) Mean Corpuscular Hemoglobin 29pg (25-35) Mean Corpuscular Hemoglobin Concent 33g/dL (31-37) Red Cell Distribution Width 14.3% (11.5-14.5) Platelet Count 211x10^3/uL (140-400) Neutrophils (%) (Auto) 57% (31-73) Lymphocytes (%) (Auto) 35% (24-48) Monocytes (%) (Auto) 7% (0-9) Eosinophils (%) (Auto) 1% (0-3) Basophils (%) (Auto) 0% (0-3) Neutrophils # (Auto) 4.6x10^3uL (1.8-7.7) Lymphocytes # (Auto) 2.8x10^3/uL (1.0-4.8) Monocytes # (Auto) 0.6x10^3/uL (0.0-1.1) Eosinophils # (Auto) 0.0x10^3/uL (0.0-0.7) Basophils # (Auto) 0.0x10^3/uL (0.0-0.2) Sodium Level 140mmol/L (136-145) Potassium Level 3.6mmol/L (3.5-5.1) Chloride Level 106mmol/L (98-107) Carbon Dioxide Level 24mmol/L (21-32) Anion Gap 10 (6-14) Blood Urea Nitrogen 14mg/dL (8-26) Creatinine 1.0mg/dL (0.7-1.3) Estimated GFR (Cockcroft-Gault) 85.5 Glucose Level 108mg/dL (70-99) H Calcium Level 9.0mg/dL (8.5-10.1) Aspartate Amino Transferase (AST) 35U/L (15-37) Alanine Aminotransferase (ALT) 106U/L (16-63) H Alkaline Phosphatase 88U/L (46-116) Troponin I Quantitative < 0.017ng/mL (0-0.055) Ethyl Alcohol Level < 10mg/dL (0-10) EKG EKG EKG interpreted by me, sinus tachycardia, rate 103 bpm, no ST segment elevation , normal axis. [] Radiology/Procedures Radiology/Procedures [] Course & Med Decision Making Course & Med Decision Making Pertinent Labs and Imaging studies reviewed. (See chart for details) Patient has a reassuring medical workup. He does remain persistently suicidal. He has been accepted to the [facility]. [] Final Impression Final Impression Suicidal ideation [] Problems: Dragon Disclaimer Dragon Disclaimer This electronic medical record was generated, in whole or in part, using a voice recognition dictation system. NENA LEAHY MD Dec 03, 2016 13:21
== END 2016-12-03 13:25 ==
LOC: ER 06:18
DX: R45.851 Suicidal ideations (principal); E11.9 Type 2 diabetes mellitus without complications; I10 Essential (primary) hypertension; F32.9 Major depressive disorder, single episode, unspecified; F17.210 Nicotine dependence, cigarettes, uncomplicated; F43.10 Post-traumatic stress disorder, unspecified; Z88.5 Allergy status to narcotic agent; Z88.0 Allergy status to penicillin; Z91.030 Bee allergy status
CPT/HCPCS: 36415; 80048; 80305; 80320; 81001; 84075; 84450; 84460; 84484; 85027; 93005; G0480; G0481; 99285-25

== ENCOUNTER 2016-12-11 23:05 | Emergency (ER) | payer MEDICARE, OTHER ==
[~2016-12-11] VITALS: Ht 167.6 cm; Wt 104.3 kg
--- NOTE | 2016-12-11 23:16 | ED.ADGEN ---
Past History Past Medical History: Depression, Diabetes, Hypertension, Seizure, Other Past Surgical History: Tonsillectomy, Other Smoking: Cigarettes Alcohol Use: None Drug Use: None Adult General Chief Complaint Chief Complaint ".. I ve been having chest pain constant the last three days...."..." I also have seizures..." HPI HPI Patient is a 36 year old male who presents with above hx of chest pain which he rates as 8 to 10 /10 the past 3 days. Patient states the pain has been constant. Nothing makes the pain better except narcotic pain meds. Patient has had 7 visits since September of this year for similar complaints and history of seizure disorder. Patient advises all his outpatient care is done at [facility]. Reviewed prior US and cardiac work up. Patient denies any trauma. Patient denies any bad food. Patient denies any specific ill contacts. Patient does have a long history of seizure disorder, PTSD, traumatic brain injury,, pseudoseizures, chronic chest pain, diabetes, hypertension, elevated lipids, and anxiety. Pt. currently lives in [facility] housing. Review of Systems Review of Systems Constitutional: Denies fever or chills [] Eyes: Denies change in visual acuity, redness, or eye pain [] HENT: Denies nasal congestion or sore throat [] Respiratory: Denies cough or shortness of breath [] Cardiovascular: No additional information not addressed in HPI [] GI: Denies abdominal pain, nausea, vomiting, bloody stools or diarrhea [] : Denies dysuria or hematuria [] Musculoskeletal: Denies back pain or joint pain [] Integument: Denies rash or skin lesions [] Neurologic: Denies headache, focal weakness or sensory changes . Complaints of seizures. Endocrine: Denies polyuria or polydipsia [] Family History Family History Noncontributory Current Medications Current Medications Current Medications Medications (Trade) Dose Ordered Sig/Chana Start Time Stop Time Status Last Admin Dose Admin Aspirin 324 mg 324 mg 1X ONCE 12/11/16 23:55 12/11/16 23:56 DC 12/11/16 23:55 324 MG Lactated Ringer's (Iv Lactated Ringers) 1,000 ml @ 1,000 mls/hr Q1H 12/11/16 23:45 12/12/16 02:35 DC 12/12/16 00:11 1,000 MLS/HR See nursing for home meds Allergies Allergies Allergies Coded Allergies Type Severity Reaction Last Updated Verified venom-honey bee Allergy Severe 11/20/16 Yes Penicillins Allergy Intermediate 11/14/16 Yes hydrocodone Allergy Intermediate 11/20/16 Yes oxycodone Allergy Intermediate 11/20/16 Yes Physical Exam Physical Exam Constitutional: no acute distress, non-toxic appearance. [] HENT: Normocephalic, atraumatic, bilateral external ears normal, oropharynx moist, no oral exudates, nose normal. [] Eyes: PERRLA, EOMI, conjunctiva normal, no discharge. [] Neck: Normal range of motion, no tenderness, supple, no stridor. [] Cardiovascular:Heart rate regular rhythm, no murmur [] Lungs & Thorax: Bilateral breath sounds equal at apexes on auscultation [] Abdomen: Bowel sounds normal, soft, no tenderness, no masses, no pulsatile masses. Refuses rectal at this time. Skin: Warm, dry, no erythema, no rash. [] Back: No tenderness, no CVA tenderness. [] Extremities: No tenderness, no cyanosis, no clubbing, ROM intact, no edema. Scar lt upper arm . Nor cording appreciated. Neurologic: Alert and oriented X 3, normal motor function, normal sensory function, no focal deficits noted. [] Psychologic: Affect anxious, judgement normal, mood normal. [] Current Patient Data Vital Signs Vital Signs Date Time Temp Pulse Resp B/P Pulse Ox O2 Delivery O2 Flow Rate FiO2 12/12/16 01:48 98.7 87 16 96 Room Air 12/12/16 01:20 136/72 Lab Results Laboratory Tests Test 12/11/16 23:35 12/11/16 23:59 White Blood Count 8.7x10^3/uL (4.0-11.0) Red Blood Count 4.79x10^6/uL (4.30-5.70) Hemoglobin 13.5g/dL (13.0-17.5) Hematocrit 41.1% (39.0-53.0) Mean Corpuscular Volume 86fL (79-100) Mean Corpuscular Hemoglobin 28pg (25-35) Mean Corpuscular Hemoglobin Concent 33g/dL (31-37) Red Cell Distribution Width 14.4% (11.5-14.5) Platelet Count 222x10^3/uL (140-400) Neutrophils (%) (Auto) 60% (31-73) Lymphocytes (%) (Auto) 33% (24-48) Monocytes (%) (Auto) 6% (0-9) Eosinophils (%) (Auto) 1% (0-3) Basophils (%) (Auto) 0% (0-3) Neutrophils # (Auto) 5.2x10^3uL (1.8-7.7) Lymphocytes # (Auto) 2.9x10^3/uL (1.0-4.8) Monocytes # (Auto) 0.5x10^3/uL (0.0-1.1) Eosinophils # (Auto) 0.1x10^3/uL (0.0-0.7) Basophils # (Auto) 0.0x10^3/uL (0.0-0.2) Prothrombin Time 10.4SEC (9.4-11.4) Prothrombin Time INR 1.0 (0.9-1.1) PTT 26SEC (23-33) Sodium Level 143mmol/L (136-145) Potassium Level 4.1mmol/L (3.5-5.1) Chloride Level 107mmol/L (98-107) Carbon Dioxide Level 27mmol/L (21-32) Anion Gap 9 (6-14) Blood Urea Nitrogen 16mg/dL (8-26) Creatinine 1.0mg/dL (0.7-1.3) Estimated GFR (Cockcroft-Gault) 85.5 Glucose Level 94mg/dL (70-99) Calcium Level 9.2mg/dL (8.5-10.1) Magnesium Level 2.0mg/dL (1.8-2.4) Total Bilirubin 0.3mg/dL (0.2-1.0) Direct Bilirubin 0.1mg/dL (0.0-0.2) Aspartate Amino Transferase (AST) 24U/L (15-37) Alanine Aminotransferase (ALT) 77U/L (16-63) H Alkaline Phosphatase 104U/L (46-116) Creatine Kinase 92U/L (39-308) Creatine Kinase MB (Mass) 1.4ng/mL (0.0-3.6) Creatine Kinase MB Relative Index 1.5% (0-4) Troponin I Quantitative < 0.017ng/mL (0-0.055) IE-Zas-H-Type Natriuretic Peptide 53pg/mL (0-124) Total Protein 7.2g/dL (6.4-8.2) Albumin 3.9g/dL (3.4-5.0) Urine Collection Type Unknown Urine Color Straw Urine Clarity Clear Urine pH 7.0 Urine Specific [place] 1.015 Urine Protein Neg (NEG-TRACE) Urine Glucose (UA) Negmg/dL (NEG) Urine Ketones (Stick) Negmg/dL (NEG) Urine Blood Neg (NEG) Urine Nitrite Neg (NEG) Urine Bilirubin Neg (NEG) Urine Urobilinogen Dipstick 0.2mg/dL (0.2 mg/dL) Urine Leukocyte Esterase Neg (NEG) Urine RBC 0/HPF (0-2) Urine WBC 0/HPF (0-4) Urine Squamous Epithelial Cells Occ/LPF Urine Bacteria Few/HPF (0-FEW) Urine Opiates Screen Neg (NEG) Urine Methadone Screen Neg (NEG) Urine Barbiturates Neg (NEG) Urine Phencyclidine Screen Neg (NEG) Urine Amphetamine/Methamphetamine Neg (NEG) Urine Benzodiazepines Screen Neg (NEG) Urine Cocaine Screen Neg (NEG) Urine Cannabinoids Screen Neg (NEG) Urine Ethyl Alcohol Neg (NEG) EKG EKG My interpretation EKG shows a sinus rhythm at 80 bpm. Some nonspecific anterior septal changes. No findings acute STEMI with contralateral changes. [] Radiology/Procedures Radiology/Procedures I interpretation chest x-ray shows no acute cardiopulmonary changes. [] Course & Med Decision Making Course & Med Decision Making Pertinent Labs and Imaging studies reviewed. (See chart for details) Patient continued take a daily aspirin. Patient continued take meds as previous directed. Patient to keep follow up for outpatient stress testing. Patient return if any concerns. [] Final Impression Final Impression 1. Hx of Chronic Chest pain [] 2. Hx Seizure Disorder 3. Hx. PTSD 4. Hx. of TBI 5. Hx. Anxiety Problems: Dragon Disclaimer Dragon Disclaimer This electronic medical record was generated, in whole or in part, using a voice recognition dictation system. STORM DELUNA MD Dec 11, 2016 23:16
[2016-12-11] MEDS ORDERED: IV RINGERS SOLUTION,LACTATED 1,000 ML IV SCH (23:45)
[2016-12-11 23:49] LABS: BASO % 0 % (0-3); EOS # 0.1 x10^3/uL (0.0-0.7); EOS % 1 % (0-3); HEMATOCRIT 41.1 % (39.0-53.0); HEMOGLOBIN 13.5 g/dL (13.0-17.5); LYMPH # 2.9 x10^3/uL (1.0-4.8); LYMPH % 33 % (24-48); MEAN CORPUSCULAR HEMOGLOBIN 28 pg (25-35); MEAN CORPUSCULAR HGB CONC 33 g/dL (31-37); MEAN CORPUSCULAR VOLUME 86 fL (79-100); MONO # 0.5 x10^3/uL (0.0-1.1); MONO % 6 % (0-9); NEUT # 5.2 x10^3uL (1.8-7.7); NEUT % 60 % (31-73); PLATELET COUNT 222 x10^3/uL (140-400); RED BLOOD COUNT 4.79 x10^6/uL (4.30-5.70); RED CELL DISTRIBUTION WIDTH 14.4 % (11.5-14.5); WHITE BLOOD COUNT 8.7 x10^3/uL (4.0-11.0)
[2016-12-11] MEDS ORDERED: ASPIRIN 81 MG TAB.CHEW PO ONE (23:55)
[2016-12-12 00:22] LABS: ALBUMIN 3.9 g/dL (3.4-5.0); CALCIUM 9.2 mg/dL (8.5-10.1); DIRECT BILIRUBIN 0.1 mg/dL (0.0-0.2); GFR 85.5; POTASSIUM 4.1 mmol/L (3.5-5.1); TOTAL BILIRUBIN 0.3 mg/dL (0.2-1.0); TOTAL PROTEIN 7.2 g/dL (6.4-8.2)
[2016-12-12 00:23] LABS: BARBITURATES NEG (NEG); BENZODIAZEPINES NEG (NEG); CANNABINOIDS NEG (NEG); COCAINE NEG (NEG); METHADONE NEG (NEG); OPIATES NEG (NEG); PHENCYCLIDINE NEG (NEG)
[2016-12-12 00:38] LABS: AMPHETAMINE/METHAMPHETAMINE NEG (NEG)
[2016-12-12 00:52] LABS: BACTERIA,URINE FEW /HPF (0-FEW); BILIRUBIN,URINE NEG (NEG); CLARITY,URINE CLEAR; COLOR,URINE STRAW; GLUCOSE,URINE NEG (NEG); NITRITE,URINE NEG (NEG); RBC,URINE 0 /HPF (0-2); SQUAMOUS EPITHELIAL CELL,UR OCC /LPF; UROBILINOGEN,URINE 0.2 mg/dL (0.2 mg/dL); WBC,URINE 0 /HPF (0-4)
[2016-12-12 01:48] VITALS: BP 148/79
--- NOTE | 2016-12-12 02:02 | EKG ---
[address] [address] Test Date: 2016-12-11 Test Time: 23:06:50 Pat Name: ANGELA JOHANSEN Department: Room: Gender: M Pulper Operator: JULIETTE : 1980 Requested By: STORM DELUNA Order Number: [id number] Reading MD: Cem Kumar Measurements Intervals [place] Rate: 88 P: 0 DE: 156 QRS: 14 QRSD: 100 T: 24 QT: 338 QTc: 412 Interpretive Statements SINUS RHYTHM Electronically Signed On 12-15-2016 15:30:32 CDT by Cem Kumar
--- NOTE | 2016-12-12 08:09 | RAD ---
PA and lateral chest radiographs 12/11/2016. Clinical History: Chest pain and shakiness.. PA and lateral digital radiographs of the chest were obtained. Comparison study is dated 11/20/2016. The cardiac and mediastinal silhouettes are within normal limits in size and configuration. No pulmonary infiltrate is seen. No pleural effusion or pneumothorax is noted. A Small calcified granuloma is seen involving the left lower lobe, unchanged. The osseous structures are grossly intact. Impression: No acute abnormality is seen.
== END 2016-12-12 01:30 | disposition home or self-care (01) ==
LOC: ER 23:05
DX: G89.29 Other chronic pain (principal); R07.89 Other chest pain; G40.909 Epilepsy, unspecified, not intractable, without status epilepticus; F43.10 Post-traumatic stress disorder, unspecified; F41.9 Anxiety disorder, unspecified; I10 Essential (primary) hypertension; E11.9 Type 2 diabetes mellitus without complications; F17.210 Nicotine dependence, cigarettes, uncomplicated; F32.9 Major depressive disorder, single episode, unspecified; Z87.820 Personal history of traumatic brain injury; Z88.0 Allergy status to penicillin; Z88.6 Allergy status to analgesic agent; Z91.030 Bee allergy status
CPT/HCPCS: 36415; 71020; 80048; 80076; 80305; 81001; 82553; 83735; 83880; 84443; 84484; 85027; 85610; 85730; 93005; 96360; 99285; J7120; G0481